=== PATIENT | male | born 1950 | race Caucasian/White ===

== ENCOUNTER 2022-06-18 15:46 | Emergency (ER) | payer BC, SELFPAY ==
--- NOTE | 2022-06-18 15:52 | ED.MALEGU ---
HPI - Male Genitourinary General Chief complaint: Urogenital-Male Stated complaint: penile problems Time Seen by Provider: 06/18/22 15:55 Source: patient, RN notes reviewed and old records reviewed Mode of arrival: ambulatory Limitations: no limitations History of Present Illness HPI Narrative: 71-year-old male presents to the [facility] with redness, itching to the foreskin of his penis. States it started on Wednesday, day after he saw his primary care provider. Patient reports that he had sex with some woman on Wednesday night. Onset (ago): day(s) (2) Related Data Allergies Allergy/AdvReac Type Severity Reaction Status Date / Time No Known Allergies Allergy Verified 06/18/22 15:51 Review of Systems Review of Systems: All systems reviewed & are unremarkable except as noted in HPI and below Constitutional: Constitutional: Reports no additional constitutional complaints Eyes: Eyes: Reports no additional eye complaints ENT: Reports system reviewed and no additional complaints, except as documented Cardiovascular: Cardiovascular: Reports no additional cardiovascular complaints, Denies chest pain and Denies dyspnea Respiratory: Respiratory: Reports no additional respiratory complaints, Denies chest congestion, Denies cough and Denies dyspnea Gastrointestinal: Gastrointestinal: Reports no additional gastrointestinal complaints, Denies abdominal pain, Denies nausea and Denies vomiting Genitourinary: Genitourinary: Reports as per HPI Musculoskeletal: Musculoskeletal: Reports no additional musculoskeletal complaints Integumentary/Breasts: Skin/Breast: Reports system reviewed and no additional complaints, except as docu Neurologic: Reports system reviewed and no additional complaints, except as documented Psychiatric: Psychiatric: Reports no additional psychiatric complaints Allergic/Immunologic: Allergic/Immunologic: Reports no additional allergic/immunologic complaints [facility] Surgical History Surgical History History of carpal tunnel release (2016) Hx of cataract removal with insertion of prosthetic lens Family History Family History Father Cerebrovascular accident Mother Parkinsons Sibling CHF (congestive heart failure) Social History Social History Smoking packs per day: 0.5 Smoking cigarettes per day: 10.0 Smoking status: Current every day smoker Alcohol intake: never Substance use: never Comments At the time of my signature, I reviewed and agree with the nursing past medical, surgical, social, and family history. There is no relevant family history pertinent to the patient complaint. Exam Const: General: cooperative, healthy appearing, comfortable, no acute distress, well developed, alert and well nourished Nutritional Appearance: well nourished Orientation/consciousness: patient oriented x3 Limitations: no limitations HENMT: Head: normal to inspection Ears: hearing grossly normal bilaterally and external ears normal Face/Nose/Sinus: Normal external nose present, Normal nares present, Normal nasal mucous membranes and turbinates present and normal facial exam Face and sinus: normal facial exam Eyes: General: appearance normal, both eyes and all related structures Alignment and Position: alignment normal Periorbital: periorbital findings normal Pupils: Equal, round and reactive pupils present EOM: EOMs intact bilaterally Neck: Neck: normal visual inspection, full ROM, no lymphadenopathy and no meningeal signs Chest: Chest palpation & inspection: normal inspection of the chest Resp: Effort & Inspection: normal respiratory effort and able to speak in complete sentences Auscultation: clear to auscultation bilaterally, no crackles, no rales, no rhonchi and no wheezes Cardio: Rate: regular rate Rh
[2022-06-18 15:55] VITALS: BP 151/82; PULSE 96; RESP 16; TEMP 37; O2SAT 97
== END 2022-06-18 16:21 | disposition home or self-care (01) ==
PROVIDERS: Emergency Provider Nurse Practitioner; PCP Family Medicine Adolescent Medicine
DX: B37.49 Other urogenital candidiasis (principal); F17.210 Nicotine dependence, cigarettes, uncomplicated
CPT/HCPCS: 87491; 87591; 87661; 99213; G0463

== ENCOUNTER 2022-10-05 10:10 | Outpatient (CLI) | payer BC, SELFPAY ==
--- NOTE | ~2022-10-05 | MR_ITS ---
MRI of the right knee Clinical history: Pain Technique: Coronal proton density and proton density-weighted images, sagittal proton-density and T2 fat-sat images, and axial proton-density fat-saturated images were acquired. Findings: Anterior and posterior cruciate ligaments are intact. Medial collateral ligament and the la teral collateral ligament complex are intact. Popliteus tendon is intact. Medial and lateral menisci are intact, without evidence of tear. There is focal moderate chondral malacia at the inner margin of the medial femoral condyle. Remaining articular cartilage is well preserved. Bone marrow signals are unremarkable. Extensor mechanism is intact. There is no significant joint effusion. Large Glaser's cyst present. Impression: Large Glaser's cyst. 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 Reviewed, dictated and finalized at location . Impression: Large Glaser's cyst. 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
== END 2022-10-05 10:11 | disposition home or self-care (01) ==
PROVIDERS: PCP Family Medicine Adolescent Medicine; Visit Provider Orthopaedic Surgery
DX: M25.561 Pain in right knee (principal); M71.21 Synovial cyst of popliteal space [Baker], right knee
CPT/HCPCS: 73721

== ENCOUNTER 2023-01-02 12:21 | Emergency (ER) | payer BC, SELFPAY ==
--- NOTE | 2023-01-02 12:28 | ED.URI ---
HPI - URI/Sore Throat General Chief Complaint: Upper Respiratory Infection Stated Complaint: Headahce, Nausea, Chills Time Seen by Provider: 01/02/23 13:00 Source: patient and RN notes reviewed Mode of arrival: ambulatory Limitations: no limitations History of Present Illness HPI Narrative: 72 year old male presents with concern for 2 week history of vague complaints. He reports body aches, abdominal discomfort, self-induced vomiting are, back pain, cold sore, rhinorrhea, nasal congestion. He reports most of the symptoms are resolving, however he has a cough remaining and has been nauseated. He feels like he is not drinking enough. He denies dysuria, frequency, urgency, difficulty urinating. He denies fever MD elicited complaint: cough and sore throat Related Data Allergies Allergy/AdvReac Type Severity Reaction Status Date / Time No Known Allergies Allergy Verified 01/02/23 12:42 Review of Systems Review of Systems: CONSTITUTIONAL: Reports malaise. Denies chills, sweats, or fever. EYES: Denies visual changes, redness, or discharge. ENT: Reports rhinorrhea, congestion denies sinus pain, otalgia and sore throat. CARDIOVASCULAR: Denies chest pain, palpitations, or edema. RESPIRATORY: Reports cough. Denies dyspnea. GASTROINTESTINAL: Denies abdominal pain, diarrhea. Reports nausea SKIN: Denies rash or itching. MUSCULOSKELETAL: Reports myalgia. NEUROLOGIC: Denies headache. All systems reviewed & are unremarkable except as noted in HPI and below PMFSH Surgical History Surgical History History of carpal tunnel release (2016) Hx of cataract removal with insertion of prosthetic lens Family History Family History Father Cerebrovascular accident Mother Parkinsons Sibling CHF (congestive heart failure) Social History Social History Smoking packs per day: 0.5 Smoking cigarettes per day: 10.0 Smoking status: Current every day smoker Alcohol intake: never Substance use: never Comments At time of signature, agree with nursing past medical, surgical, social and family history. There is no relevant family history pertinent to the presenting complaint Exam Narrative: GENERAL: Well-appearing, well-nourished, and in no acute distress. HEAD: Normocephalic EYES: PERRLA, conjunctivae clear ENT: Nares clear, turbinates edematous and erythematous, clear discharge. Mucous membranes moist. TM pearly [place] with dull light reflex bilaterally; no tragal tenderness. Oropharynx not erythematous without lesions. Tonsils not enlarged and without exudate, no drooling, no hoarseness, no trismus, uvula midline. NECK: Supple. No lymphadenopathy CHEST: Clear to auscultation, breath sounds equal. No wheezing, rhonchi, rales, or stridor. No respiratory distress, speaks in full sentences. HEART: Regular rate and rhythm. No murmur heard. SKIN: Warm, dry, no rash. NEURO: Alert and oriented x3. PSYCH: Normal mood and affect Course Course Emergency Course: Patient is aware of diagnosis, understands and agrees to treatment plan. Anticipatory guidance given. Patient agrees to follow-up as directed and is aware of reasons to seek care at the emergency department. Portions of this record may have been created with voice recognition software Level of Care: Express Care Visit Vital Signs Vital signs: Reviewed. MDM - URI/Sore Throat MDM Narrative Medical decision making narrative: Differential diagnosis considered: Roque virus, strep pharyngitis, allergic rhinitis, upper respiratory tract infection, sinusitis, rhinosinusitis, nasopharyngitis. viral pharyngitis, otitis media, otitis externa, pneumonia, bronchitis, viral cough syndrome, viral syndrome, and influenza. Exam findings show no acute concerns or changes; patient is non-toxic a
[2023-01-02 12:39] VITALS: BP 149/74; PULSE 93; RESP 20; TEMP 37.4; O2SAT 98
== END 2023-01-02 13:19 | disposition home or self-care (01) ==
PROVIDERS: Emergency Provider Nurse Practitioner; PCP Family Medicine Adolescent Medicine
DX: R11.0 Nausea (principal); F17.210 Nicotine dependence, cigarettes, uncomplicated; Z20.822 Contact with and (suspected) exposure to COVID-19
CPT/HCPCS: 81003; 87426; 87804; 99213; C9803; G0463

== ENCOUNTER 2023-03-06 11:35 | Emergency (ER) | payer BC, SELFPAY ==
--- NOTE | 2023-03-06 11:48 | ED.BACK ---
HPI - Back Pain/Injury General Chief Complaint: Back Pain/Injury Stated Complaint: back injury Time Seen by Provider: 03/06/23 11:55 Source: patient, RN notes reviewed and old records reviewed Mode of arrival: ambulatory Limitations: no limitations History of Present Illness HPI Narrative: 72-year-old male presents to the [facility] with complaints of left flank pain. Patient states that he was using a bumping bar yesterday approximately 2:00 p.m.. Patient states as he was driving home started having pain to the left flank area. States that he really felt nauseous, vomited, was having frequency urgency with urination. Patient states 09/17 Patient is not a great historian Denies fevers Denies history of any kidney stones or urinary issues. States he took his meloxicam and NyQuil last night to help manage pain however he has had no improvement. Onset (ago): day(s) Relieving factors: none Work related injury: No Related Data Home Medications Medication Instructions Recorded Confirmed meloxicam 7.5 mg tablet 7.5 mg PO DAILY 03/06/23 03/06/23 Allergies Allergy/AdvReac Type Severity Reaction Status Date / Time No Known Allergies Allergy Verified 03/06/23 11:53 Review of Systems Review of Systems: All systems reviewed & are unremarkable except as noted in HPI and below Constitutional: Constitutional: Reports no additional constitutional complaints Eyes: Eyes: Reports no additional eye complaints ENT: Reports system reviewed and no additional complaints, except as documented Cardiovascular: Cardiovascular: Reports no additional cardiovascular complaints, Denies chest pain and Denies dyspnea Respiratory: Respiratory: Reports no additional respiratory complaints, Denies chest congestion, Denies cough and Denies dyspnea Gastrointestinal: Gastrointestinal: Reports as per HPI, Reports abdominal pain, Reports nausea and Reports vomiting Musculoskeletal: Musculoskeletal: Reports no additional musculoskeletal complaints Integumentary/Breasts: Skin/Breast: Reports system reviewed and no additional complaints, except as docu Neurologic: Reports system reviewed and no additional complaints, except as documented Psychiatric: Psychiatric: Reports no additional psychiatric complaints Allergic/Immunologic: Allergic/Immunologic: Reports no additional allergic/immunologic complaints [facility] Surgical History Surgical History History of carpal tunnel release (2016) Hx of cataract removal with insertion of prosthetic lens Family History Family History Father Cerebrovascular accident Mother Parkinsons Sibling CHF (congestive heart failure) Social History Social History Smoking packs per day: 0.5 Smoking cigarettes per day: 10.0 Smoking status: Current every day smoker Alcohol intake: never Substance use: never Comments At the time of my signature, I reviewed and agree with the nursing past medical, surgical, social, and family history. There is no relevant family history pertinent to the patient complaint. Exam Const: General: cooperative, well developed, alert, uncomfortable, well groomed and well nourished Nutritional Appearance: well nourished Orientation/consciousness: patient oriented x3 Limitations: no limitations HENMT: Head: normal to inspection Ears: hearing grossly normal bilaterally and external ears normal Face/Nose/Sinus: Normal external nose present, Normal nares present, Normal nasal mucous membranes and turbinates present, normal facial exam and face symmetric Face and sinus: normal facial exam and face symmetric Eyes: General: appearance normal, both eyes and all related structures Alignment and Position: alignment normal Periorbital: periorbital findings normal Pupils: Equal, round and reac
[2023-03-06 11:50] VITALS: BP 148/78; PULSE 83; RESP 16; TEMP 37; O2SAT 99
== END 2023-03-06 12:45 | disposition short-term general hospital (02) ==
PROVIDERS: Emergency Provider Nurse Practitioner; PCP Family Medicine Adolescent Medicine
DX: R10.9 Unspecified abdominal pain (principal); F17.210 Nicotine dependence, cigarettes, uncomplicated; Z98.49 Cataract extraction status, unspecified eye
CPT/HCPCS: 81003; 99212; G0463

== ENCOUNTER 2023-03-06 13:07 | Emergency (ER) | payer BC, SELFPAY ==
--- NOTE | ~2023-03-06 | CT_ITS ---
EXAMINATION: CT abdomen pelvis wo con DATE: 03/06/2023 18:24 INDICATION: L flank pain x 1 day TECHNIQUE: Computed tomography (CT) of the abdomen and pelvis was performed without intravenous contr ast. Automated exposure control and iterative reconstruction technique were employed. The dose-length product was 331.83 mGy-cm. COMPARISON: None. FINDINGS: Lower thorax: 4.1 x 1.5 cm left lower lobe opacity with spiculated margins. Emphysematous change. Liver: Normal. Biliary/Gallbladder: Cholelithiasis. No bile duct dilation. Pancreas: No mass or duct dilation. Spleen: Normal. Adrenals:No mass. Kidneys: Moderate left and mild right perinephric stranding. Mild left hydronephrosis. No suspicious mass. GI tract: No small or large bowel dilation. Normal appendix. Mesentery/Peritoneum: No ascites, mass, or free air. Retroperitoneum: No mass. Atherosclerotic abdominal aortic and/or arterial calcifications. Pelvis: Normal urinary bladder. 3 mm distal left ureteral calcification. Soft Tissues: Soft tissues and body wall unremarkable. Bones: No acute osseous finding. IMPRESSION: 3 mm distal left ureteral calcification causing mild-moderate obstructive uropathy. 4.1 x 1.5 cm irregular area of possible left lower lobe scar, neoplasia not excluded, recommend georgiana rison to outside studies if available. Otherwise, consider follow-up CT at 3 months, PET/CT, or tissu e sampling. Reviewed, dictated and finalized at location K. LBOARD TANK PUMPER IMPRESSION: 3 mm distal left ureteral calcification causing mild-moderate obstructive uropa thy. 4.1 x 1.5 cm irregular area of possible left lower lobe scar, neoplasia not exc luded, recommend comparison to outside studies if available. Otherwise, conside r follow-up CT at 3 months, PET/CT, or tissue sampling.
[2023-03-06 13:14] VITALS: BP 146/72; PULSE 77; RESP 18; TEMP 36.4; O2SAT 100
[2023-03-06 18:05] LABS: Basophils Percent Auto 0.2 % (0.2-1.2); Eosinophils Percent Auto 0.2 % (0-4.4); Hematocrit 46.3 % (42.0-52.0); Hemoglobin 15.2 g/dL (14.0-18.0); Immature Granulocyte Absolute 0.06 K/mm3 (0.00-0.031); Immature Granulocyte Percent A 0.4 % (0-0.5); Lymphocytes Percent Auto 12.7 % (18.3-44.2); Mean Corpuscular HGB Conc 32.8 g/dl (32-36); Mean Corpuscular Hemoglobin 33.3 pg (26-34); Mean Corpuscular Volume 101.3 fl (80-100); Mean Platelet Volume 9.7 fl (7.4-10.4); Monocytes Absolute Auto 1.1 K/mm3 (0.1-0.6); Monocytes Percent Auto 7.2 % (2.6-8.5); Neutrophils Absolute Auto 12.5 K/mm3 (1.3-6.7); Neutrophils Percent Auto 79.3 % (45.5-73.1); Platelet Count Result 188 k/mm3 (150-375); Red Blood Count 4.57 M/mm3 (4.6-6.20); Red Cell Distribution Width 13.4 % (11.5-14.5); White Blood Count 15.7 K/mm3 (4.5-10.0)
--- NOTE | 2023-03-06 18:07 | ED_ITS ---
HPI - General Adult General Chief complaint: Urogenital-Male Stated complaint: flank pain Time Seen by Provider: 03/06/23 17:53 Source: patient Mode of arrival: ambulatory Limitations: no limitations History of Present Illness HPI narrative: this is a 72-year-old male who presents to the ED with chief complaint of Left flank pain beginning yesterday. Reports today the pain worsened Significantly. Reports pain stays in the left flank area and does not radiate. He does note that he was working on some things in the [place] a few days ago but denies any specific injury. Endorses diaphoresis along with nausea and vomiting today. Denies any recorded fevers, diarrhea chest pain, shortness of breath or urinary problems. Related Data Home Medications Medication Instructions Recorded Confirmed meloxicam 7.5 mg tablet 7.5 mg PO DAILY 03/06/23 03/06/23 Allergies Allergy/AdvReac Type Severity Reaction Status Date / Time No Known Allergies Allergy Verified 03/06/23 11:53 Review of Systems Review of Systems: All systems as dictated in [facility] Surgical History Surgical History History of carpal tunnel release (2016) Hx of cataract removal with insertion of prosthetic lens Family History Family History Father Cerebrovascular accident Mother Parkinsons Sibling CHF (congestive heart failure) Social History Social History Smoking packs per day: 0.5 Smoking cigarettes per day: 10.0 Smoking status: Current every day smoker Alcohol intake: never Substance use: never Exam Narrative: GENERAL: Well-appearing, well-nourished, and in no acute distress. HEAD: Normocephalic, atraumatic. EYES: PERRLA and EOMI. ENT: Nares clear, no rhinorrhea or epistaxis. Mucous membranes moist. Oropharynx without tonsillar hypertrophy exudate or other lesions. NECK: Supple. No adenopathy or masses. CHEST: No respiratory distress. Clear to auscultation. No wheezes rales or rhonchi HEART: Regular rate and rhythm. No murmur heard. Normal peripheral pulses. ABDOMEN: significant left flank tenderness present. Negative right flank. Soft, otherwise nontender, nondistended, normal active bowel sounds. MSK: Normal range of motion. No edema. SKIN: Warm, dry, no rash. NEURO: Alert and oriented x3. No focal deficits. PSYCH: Normal mood and affect. Course Vital Signs Vital signs: Vital Signs Temperature 97.5 F L 03/06/23 13:14 Pulse Rate 77 03/06/23 13:14 Respiratory Rate 18 03/06/23 13:14 Blood Pressure 146/72 H 03/06/23 13:14 Pulse Oximetry 100 03/06/23 13:14 Oxygen Delivery Room Air 03/06/23 13:14 Temperature 97.5 F L 03/06/23 13:14 Pulse Rate 77 03/06/23 13:14 Respiratory Rate 18 03/06/23 13:14 Blood Pressure 146/72 H 03/06/23 13:14 Pulse Oximetry 100 03/06/23 13:14 Oxygen Delivery Room Air 03/06/23 13:14 Medical Decision Making MDM Narrative Medical decision making narrative: This is a 72-year-old male who presents to the ED with chief complaint of left flank pain beginning last night. Vitals are normal. On exam he does have left flank tenderness. White count is 15.7. CMP remarkable only for slightly elevated BUN at 21. Creatinine is normal. Urinalysis shows evidence blood. There is trace leuk but also this is contaminated with acute squames. Low suspicion for UTI. CT abdomen: 3 mm distal left ureteral calcification causing mild-moderate obstructive uropathy. 4.1 x 1.5 cm irregular area of possible left lower lobe scar, neoplasia not excluded, recommend comparison to outside studies if available. Otherwise, consider follow-up CT at 3 months, PET/CT, or tissue sampling.. symptoms consistent with ureteral stone. For patient did very well with morphine and Zofran here. He was also given a dose of Toradol before being discharged. Flomax, Zofran and Musella prescribed to the pharmacy. Pt will be discharged in stable condition. Return precautions given and supportive measures discussed. Pt is understanding and agreeable with plan for discharge and follow-up with PCP. Vital Signs Vital Signs: Vital Signs Temperature 97.5 F L 03/06/23 13:14 Pulse Rate 77 03/06/23 13:14 Respiratory Rate 18 03/06/23 13:14 Blood Pressure 146/72 H 03/06/23 13:14 Pulse Oximetry 100 03/06/23 13:14 Oxygen Delivery Room Air 03/06/23 13:14 Temperature 97.5 F L 03/06/23 13:14 Pulse Rate 77 03/06/23 13:14 Respiratory Rate 18 03/06/23 13:14 Blood Pressure 146/72 H 03/06/23 13:14 Pulse Oximetry 100 03/06/23 13:14 Oxygen Delivery Room Air 03/06/23 13:14 Lab Data 03/06/23 18:00 03/06/23 18:00 Labs: Lab Results 03/06/23 03/06/23 Range/Units 18:00 19:08 WBC 15.7 H (4.5-10.0) K/mm3 RBC 4.57 L (4.6-6.20) M/mm3 Hgb 15.2 (14.0-18.0) g/dL Hct 46.3 (42.0-52.0) % MCV 101.3 H (80-100) fl MCH 33.3 (26-34) pg MCHC 32.8 (32-36) g/dl RDW 13.4 (11.5-14.5) % Plt Count 188 (150-375) k/mm3 MPV 9.7 (7.4-10.4) fl Immature Gran % (Auto) 0.4 (0-0.5) % Neut % (Auto) 79.3 H (45.5-73.1) % Lymph % (Auto) 12.7 L (18.3-44.2) % [place] % (Auto) 7.2 (2.6-8.5) % Eos % (Auto) 0.2 (0-4.4) % Baso % (Auto) 0.2 (0.2-1.2) % Lymph # (Auto) 2.00 (0.9-3.2) K/mm3 [place] # (Auto) 1.1 H (0.1-0.6) K/mm3 Eos # (Auto) 0.0 (0-0.3) K/mm3 Baso # (Auto) 0.0 (0.0-0.1) K/mm3 Abs Immat Gran (auto) 0.06 H (0.00-0.031) K/mm3 Absolute Neuts (auto) 12.5 H (1.3-6.7) K/mm3 Absolute Nucleated RBC 0.0 (0.0-0.012) K/mm3 Nucleated RBC % 0.0 (0.0-0.2) % Sodium 140 (137-145) mmol/L Potassium 4.3 (3.4-5.0) mmol/L Chloride 106 (98-107) mmol/L Carbon Dioxide 26 (22-30) mmol/L Anion Gap 8 (8-16) mmol/L BUN 21 H (9-20) mg/dL Creatinine 1.30 (0.7-1.3) mg/dL Estim Creat Clear Calc Not Reportable Estimated GFR 54 L (59 - ) Glucose 115 H (65-110) mg/dL Calcium 9.7 (8.4-10.2) mg/dL Total Bilirubin 1.1 (0.2-1.3) mg/dL AST 36 (17-59) U/L ALT 23 (6-50) U/L Alkaline Phosphatase 77 (38-126) U/L Total Protein 8.0 (6.3-8.2) g/dL Albumin 4.8 (3.5-5.1) g/dL Lipase 67 (23-300) U/L Urine Color Dark yellow (Yellow) Urine Appearance Clear (Clear) Urine pH 5.0 (5.0-9.0) Ur Specific [place] 1.023 (1.001-1.035) Urine Protein 1+ H (Negative) mg/dL Urine Glucose (UA) Negative (Negative) mg/dL Urine Ketones 1+ H (Negative) mg/dL Ur Blood (Man) 3+ H (Negative) Urine Nitrate Negative (Negative) Urine Bilirubin Negative (Negative) Urine Urobilinogen 1.0 (<2.0) mg/dL Leukocyte Esterase Rfl Trace H (Negative) ZOILA/UL Urine RBC 21-50 H (0-2) /hpf Urine WBC 0-5 /hpf Ur Squamous Epith Cells Occasional (Few) /hpf Urine Bacteria None seen /hpf Urine Casts 0-2 Discharge Plan Discharge Clinical Impression: Calculus of distal left ureter Patient Disposition: Home, Self-Care Condition: Stable Instructions: Antibiotic Form, Kidney Stones (ED) Additional Instructions: your exam shows evidence of left-sided kidney stone. This should pass on its own with the use of Flomax. Zofran as prescribed for nausea and Musella for pain. Use Tylenol regularly for pain control at home. If you have any new or worsening symptoms please return to the ER for further evaluation. Prescriptions: New ondansetron 4 mg tablet,disintegrating 4 mg PO Q8H PRN (Reason: nausea and vomiting) Qty: 10 0RF hydrocodone-acetaminophen 5-325 mg tablet 1 tablet PO Q8H PRN (Reason: pain) Qty: 14 0RF tamsulosin [Flomax] 0.4 mg capsule 0.4 mg PO DAILY Qty: 10 0RF No Action meloxicam 7.5 mg tablet 7.5 mg PO DAILY Follow-up/Referrals: Tho Tenorio MD [Primary Care Provider] - Stand Alone Forms: Work/School Release IP Time of Disposition: 19:54
[2023-03-06] MEDS: ONDANSETRON INJ 4 MG/2 ML VIAL IV PUSH (18:08)
[2023-03-06] MEDS: MORPHINE SULFATE (*CRX) 4 MG/ML INJ IV PUSH (18:08)
[2023-03-06 18:16] LABS: Alanine Aminotransferase 23 U/L (6-50); Albumin Level 4.8 g/dL (3.5-5.1); Alkaline Phosphatase 77 U/L (38-126); Anion Gap 8 mmol/L (8-16); Aspartate Amino Transferase 36 U/L (17-59); Bilirubin,Total 1.1 mg/dL (0.2-1.3); Blood Urea Nitrogen 21 mg/dL (9-20); Calcium 9.7 mg/dL (8.4-10.2); Carbon Dioxide 26 mmol/L (22-30); Chloride 106 mmol/L (98-107); Estimated Glomerular Filt Rate 54; Glucose 115 mg/dL (65-110); Lipase 67 U/L (23-300); Potassium 4.3 mmol/L (3.4-5.0); Sodium 140 mmol/L (137-145)
[2023-03-06 19:20] LABS: Appearance Urine Clear (Clear); Bacteria Urine None Seen /hpf; Bilirubin Urine Negative (Negative); Blood Urine 3+ (Negative); Color Urine Dark Yellow (Yellow); Glucose Urine UA Negative (Negative); Ketones Urine 1+ mg/dL (Negative); Leukocyte Esterase Ur Trace LEU/UL (Negative); Nitrate Urine Negative (Negative); Non Pathogenic Casts 0-2; Protein Urine 1+ mg/dL (Negative); RBC Urine 21-50 /hpf (0-2); Specific Grav Ur 1.023 (1.001-1.035); Squamous Epithelial Cell Urine Occasional /hpf (Few); WBC Urine 0-5 /hpf
[2023-03-06 19:28] LABS: Add Urine Microscopic? YES
[2023-03-06] MEDS: KETOROLAC 15 MG/ML VIAL (*BKC) IV PUSH (19:54)
== END 2023-03-06 20:33 | disposition home or self-care (01) ==
PROVIDERS: Emergency Provider Physician Assistant; PCP Family Medicine Adolescent Medicine
DX: N13.9 Obstructive and reflux uropathy, unspecified (principal); N20.1 Calculus of ureter; Z96.1 Presence of intraocular lens; Z98.49 Cataract extraction status, unspecified eye; F17.210 Nicotine dependence, cigarettes, uncomplicated; R91.8 Other nonspecific abnormal finding of lung field
CPT/HCPCS: 36415; 74176; 80053; 81001; 81003; 83690; 85025; 96374; 96375; 99284; J1885; J2270; J2405

== ENCOUNTER 2023-03-07 18:16 | Observation (INO) | payer BC, SELFPAY ==
[2023-03-07] VITALS (8 sets, daily range): BP systolic 87–113; BP diastolic 56–82; PULSE 83–161; RESP 20–21; TEMP 36.3; O2SAT 94–99
--- NOTE | ~2023-03-07 | CT_ITS ---
Non-contrast CT scan of the Abdomen and Pelvis Clinical indication: Kidney stone Technique: 2.5 mm axial scans were obtained through the abdomen and pelvis without intravenous or or al contrast. Dose reduction technique was used on this scan by utilizing automated exposure control a nd iterative reconstruction technique. The dose-length product (DLP) was 376.00 mGy-cm. COMPARISON: 03/06/2023 Findings: Images through the lung bases reveal small bilateral pleural effusions, with bibasilar ate lectasis. Probable minimal fullness left renal collecting system. No renal, ureteral, or bladder stones seen cu rrently. No right hydronephrosis. The liver, spleen, pancreas, and adrenals appear normal. Multiple gallstones are present. There are a therosclerotic calcifications of the aorta. There is no evidence of bowel obstruction. Images through the pelvis were performed. There is no evidence of ascites or lymphadenopathy. Urinary bladder unremarkable. Prostate gland is enlarged. Impression: No renal, ureteral, or bladder stone seen. Possible minimal fullness left renal collecting system, im proved from prior exam. Previously noted distal left ureteral stone has presumably been passed. Small bilateral pleural effusions. Cholelithiasis. Reviewed, dictated and finalized at [facility]. L MINER Impression: No renal, ureteral, or bladder stone seen. Possible minimal fullness left renal collecting system, improved from prior exam. Previously noted distal left uret eral stone has presumably been passed. Small bilateral pleural effusions. Cholelithiasis.
--- NOTE | ~2023-03-07 | XR_ITS ---
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 RESULT: Lines, tubes, and devices: None. Lungs and pleura: Mild diffuse reticular opacities, streaky bibasilar atelectasis/scar, mild bilater al posterior costophrenic angle blunting. Cardiomediastinal silhouette: Stable. Other: No acute osseous or upper abdominal finding. IMPRESSION: Mild interstitial edema and small bilateral effusions. Reviewed, dictated and finalized at location K. H MAKING MACHINE OPERATOR
--- NOTE | 2023-03-07 19:05 | ECG_ITS ---
Measurements Intervals [place] Rate: 160 P: [place]: 0 QRS: 61 QRSD: 73 T: 67 QT: 255 QTc: 416 Interpretive Statements ATRIAL FLUTTER/TACHYCARDIA WITH RAPID VENTRICULAR RESPONSE CANNOT RULE OUT SEPTAL INFARCT, AGE INDETERMINATE ABNORMAL ECG NO PREVIOUS ECG AVAILABLE FOR COMPARISON Electronically Signed On 03-07-2023 19:28:48 MANAGER POOL by Jatinder Valles D.O.
[2023-03-07 19:21] LABS: Basophils Absolute Auto 0.1 K/mm3 (0.0-0.1); Basophils Percent Auto 0.4 % (0.2-1.2); Eosinophils Absolute Auto 0.1 K/mm3 (0-0.3); Eosinophils Percent Auto 0.7 % (0-4.4); Hematocrit 44.7 % (42.0-52.0); Hemoglobin 14.6 g/dL (14.0-18.0); Immature Granulocyte Absolute 0.04 K/mm3 (0.00-0.031); Immature Granulocyte Percent A 0.3 % (0-0.5); Lymphocytes Absolute Auto 1.64 K/mm3 (0.9-3.2); Lymphocytes Percent Auto 13.5 % (18.3-44.2); Mean Corpuscular HGB Conc 32.7 g/dl (32-36); Mean Corpuscular Hemoglobin 33.4 pg (26-34); Mean Corpuscular Volume 102.3 fl (80-100); Mean Platelet Volume 10.2 fl (7.4-10.4); Monocytes Absolute Auto 0.9 K/mm3 (0.1-0.6); Monocytes Percent Auto 7.6 % (2.6-8.5); Neutrophils Absolute Auto 9.4 K/mm3 (1.3-6.7); Neutrophils Percent Auto 77.5 % (45.5-73.1); Platelet Count Result 176 k/mm3 (150-375); Red Blood Count 4.37 M/mm3 (4.6-6.20); Red Cell Distribution Width 13.4 % (11.5-14.5); White Blood Count 12.2 K/mm3 (4.5-10.0)
--- NOTE | 2023-03-07 19:30 | ECG_ITS ---
Measurements Intervals [place] Rate: 82 P: 46 TN: 157 QRS: 45 QRSD: 76 T: 60 QT: 364 QTc: 426 Interpretive Statements SINUS RHYTHM WITH SINUS ARRHYTHMIA NORMAL ECG COMPARED TO ECG 03/07/2023 19:06:59 SINUS RHYTHM NOW PRESENT SINUS ARRHYTHMIA NOW PRESENT Electronically Signed On 03-08-2023 9:27:20 DIGITAL MARKETING ASSISTANT by Jatinder Valles D.O.
[2023-03-07 19:35] LABS: Anion Gap 7 mmol/L (8-16); Blood Urea Nitrogen 37 mg/dL (9-20); Calcium 8.8 mg/dL (8.4-10.2); Carbon Dioxide 27 mmol/L (22-30); Chloride 106 mmol/L (98-107); Estimated CRCL calculation 40 ml/min; Estimated Glomerular Filt Rate 42; Glucose 114 mg/dL (65-110); Potassium 4.1 mmol/L (3.4-5.0); Sodium 140 mmol/L (137-145)
[2023-03-07] MEDS: HYDROmorphone HCL INJ (*CRX) 1 MG/ML SYR 0.5 MG IV PUSH (19:35)
[2023-03-07] MEDS: KETOROLAC 15 MG/ML VIAL (*BKC) IV PUSH (19:36)
[2023-03-07] MEDS: SODIUM CHLORIDE 0.9% IV 1,000 ML 999 ML IV CONT ×2 (19:36→22:35)
[2023-03-07] MEDS: ONDANSETRON INJ 4 MG/2 ML VIAL IV PUSH (19:36)
[2023-03-07] MEDS: ASPIRIN 81 MG CHEWABLE TABLET 324 MG PO (20:14)
[2023-03-07] MEDS: dilTIAZem HCl INJ 25 MG/5 ML VIAL 10 MG IV PUSH ×2 (20:15→20:38)
[2023-03-07] MEDS: dilTIAZem 100 MG/100 ML 100 MG/100 ML BAG IV CONT (21:01)
--- NOTE | 2023-03-07 21:28 | ED.GENADULT ---
HPI - General Adult General Chief complaint: Urogenital-Male Stated complaint: kidney stone Time Seen by Provider: 03/07/23 18:59 History of Present Illness HPI narrative: This is a 72-year-old male presenting with left-sided flank pain. He was diagnosed with a 3 mm distal ureter stone yesterday. Pain was controlled emergency department he was discharged. The patient did not take Motrin Tylenol. He took 1 Sealevel which helped with the pain but then the pain recurred. He took another Sealevel later in the day which did not help. He then came to the hospital for pain control. He denies fever chills nausea vomiting abdominal pain. Related Data Home Medications Medication Instructions Recorded Confirmed meloxicam 7.5 mg tablet 7.5 mg PO DAILY 03/06/23 03/06/23 Allergies Allergy/AdvReac Type Severity Reaction Status Date / Time No Known Allergies Allergy Verified 03/06/23 11:53 [facility] Surgical History Surgical History History of carpal tunnel release (2015) Hx of cataract removal with insertion of prosthetic lens Family History Family History Father Cerebrovascular accident Mother Parkinsons Sibling CHF (congestive heart failure) Social History Social History Smoking packs per day: 0.5 Smoking cigarettes per day: 10.0 Smoking status: Current every day smoker Alcohol intake: never Substance use: never Exam Narrative: APPEARANCE: No apparent distress. Head: atraumatic. EYES: EOMI, NOSE: Atraumatic NECK: Trachea midline RESPIRATORY: No increased rate of breathing CARDIOVASCULAR: Tachycardic ABDOMINAL: Soft nontender, left CVA tenderness MUSCULOSKELETAl: No obvious deformities NEURO: Alert. Moving 4/4 extremities SKIN:: Warm, dry. Normal color PSYCHIATRIC: Normal affect Course Vital Signs Vital signs: Vital Signs Temperature 97.4 F L 03/07/23 18:20 Pulse Rate 154 H 03/07/23 18:20 Respiratory Rate 20 03/07/23 18:20 Blood Pressure 108/74 03/07/23 18:20 Pulse Oximetry 99 03/07/23 18:20 Temperature 97.4 F L 03/07/23 18:20 Pulse Rate 156 H 03/07/23 21:01 Respiratory Rate 20 03/07/23 18:20 Blood Pressure 113/82 03/07/23 21:01 Pulse Oximetry 99 03/07/23 18:20 Medical Decision Making MDM Narrative Medical decision making narrative: -Course: 72-year-old male presenting with left-sided flank pain due to kidney stone. Incidentally found to be in AFib with RVR. Kidney stone pain was controlled with Dilaudid, Toradol and Tylenol. Patient was given diltiazem 10 mg x 2 and then started on a diltiazem drip. Chads Vasc of 1 for age. Given 325 mg aspirin. 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 Improved from yesterday. Slight FAUSTINO. Given fluid rehydration. Urine not indicative infection. Independent EKG interpretation: Rhythm a flutter, Rate [160], [place] -[normal], [place] -[normal], QRS [narrow], QTC [normal], T waves -[negative for concerning inversions], ST Segments - [Negative for concerning elevations] Final interpretations: AFib/flutter with RVR -Discussion of Management/Consultants: César- Hospitalist -Interventions: 2 L normal saline, Dilaudid, Tylenol, Toradol, diltiazem 10 mg x 2, diltiazem drip -Shared decision making / Disposition:admitted. Vital Signs Vital Signs: Vital Signs Temperature 97.4 F L 03/07/23 18:20 Pulse Rate 154 H 03/07/23 18:20 Respiratory Rate 2
--- NOTE | 2023-03-07 21:31 | PC.NURSE ---
This RN at bedside, when pt sat on edge of bed to use urinal O2 sat dropped to 88%. Pt placed 2L nasal cannula, O2 sat now 97%
--- NOTE | 2023-03-07 21:37 | PM.IMHP ---
H&P: HPI History of Present Illness Date/Time: 03/07/23 21:37 Chief Complaint: Left flank pain Narrative: This is a 72-year-old male with past medical history significant for benign prostatic hyperplasia, tobacco dependence. patient presents to the emergency room with left flank pain. Preliminary workup was significant for kidney stone. While patient was in the emergency room he had episode of atrial fibrillation with rapid ventricular response which remained sustained patient was started on Cardizem drip. Patient has been admitted for further evaluation management and treatment. Non-contrast CT scan of the Abdomen and Pelvis Clinical indication: Kidney stone Technique:? 2.5 mm axial scans were obtained through the abdomen and pelvis without intravenous or oral contrast. Dose reduction technique was used on this scan by utilizing automated exposure control and iterative reconstruction technique. The dose-length product (DLP) was 376.00 mGy-cm. COMPARISON: 03/06/2023 Findings:? Images through the lung bases reveal small bilateral pleural effusions, with bibasilar atelectasis. Probable minimal fullness left renal collecting system. No renal, ureteral, or bladder stones seen currently. No right hydronephrosis. The liver, spleen, pancreas, and adrenals appear normal. Multiple gallstones are present. There are atherosclerotic calcifications of the aorta.? ? There is no evidence of bowel obstruction. Images through the pelvis were performed. There is no evidence of ascites or lymphadenopathy. Urinary bladder unremarkable. Prostate gland is enlarged. Impression: No renal, ureteral, or bladder stone seen. Possible minimal fullness left renal collecting system, improved from prior exam. Previously noted distal left ureteral stone has presumably been passed. Small bilateral pleural effusions. Cholelithiasis. Review of Systems Review of Systems: Left flank pain Constitutional: Constitutional: Denies chills, Denies fever(s), Denies malaise and Denies night sweats Eyes: Eyes: Denies change in vision ENT: Denies dysphagia and Denies odynophagia Cardiovascular: Cardiovascular: Denies chest pain, Reports irregular heart rhythm, Denies radiating jaw, neck or arm pain and Denies palpitations Respiratory: Respiratory: Denies cough and Denies dyspnea Gastrointestinal: Gastrointestinal: Denies abdominal pain, Denies dyspepsia, Denies heartburn, Denies nausea and Denies vomiting Genitourinary: Genitourinary: Reports flank pain Musculoskeletal: Musculoskeletal: Denies muscle weakness Integumentary/Breasts: Skin/Breast: Denies rash Neurologic: Denies focal weakness and Denies Sensory deficit (Neuro) Psychiatric: Psychiatric: Reports no additional psychiatric complaints and Reports as per HPI Endocrine: Endocrine: Denies cold intolerance, Denies fatigue, Denies flushing, Denies heat intolerance, Denies polyphagia, Denies polydipsia and Denies palpitations Hematologic/Lymphatic: Hematologic/Lymphatic: Reports no additional hematologic/lymphatic complaints and Reports as per HPI Allergic/Immunologic: Allergic/Immunologic: Reports no additional allergic/immunologic complaints and Reports as per HPI PMFSH Surgical History Surgical History History of carpal tunnel release (2016) Hx of cataract removal with insertion of prosthetic lens Family History Family History Father Cerebrovascular accident Mother Parkinsons Sibling CHF (congestive heart failure) Social History Social History Smoking packs per day: 1 Smoking cigarettes per day: 20.0 Smoking status: Current every day smoker Tobacco type: cigarettes Second hand tobacco smoke exposure: No Alcohol intake: never Substance use: never Do You Feel Safe in
[2023-03-07 21:56] LABS: Appearance Urine Clear (Clear); Bacteria Urine None Seen /hpf; Bilirubin Urine Negative (Negative); Blood Urine 2+ (Negative); Calcium Oxalate Crystals Urine Present /hpf; Color Urine Dark Yellow (Yellow); Glucose Urine UA Negative (Negative); Ketones Urine Trace mg/dL (Negative); Leukocyte Esterase Ur Negative LEU/UL (Negative); Need Manual Microscopic Reviewed; Nitrate Urine Negative (Negative); Protein Urine 1+ mg/dL (Negative); Specific Grav Ur 1.034 (1.001-1.035); Squamous Epithelial Cell Urine None seen /hpf (Few)
[2023-03-07 21:58] LABS: Add Urine Microscopic? YES
[2023-03-08] VITALS (16 sets, daily range): BP systolic 98–129; BP diastolic 63–78; PULSE 72–96; RESP 12–19; TEMP 36.5–37.2; O2SAT 90–99; BMI 23.8
--- NOTE | 2023-03-08 02:52 | ADMGEN ---
This patient, Alexandre Aguilar, was admitted to IMU Room 203-01. Patient/family oriented to hospital policies and general routines including ID bracelet, bed and alarms, visiting hours, pain management, procedures, bathroom and other care routines, personal items, smoking policy, room service/diet, and visiting hours. Information on how to activate the Rapid Response Team has been discussed. Patient/Family are encouraged to report perceived risks to care and to ask questions if they do not understand what they are told or what they should do.
[2023-03-08] MEDS: HYDROmorphone HCL INJ (*CRX) 1 MG/ML SYR 0.5 MG IV PUSH ×2 (07:53→18:29)
[2023-03-08] MEDS: KETOROLAC 15 MG/ML VIAL (*BKC) IV PUSH ×3 (10:05→18:30)
[2023-03-08] MEDS: levoFLOXacin 500 MG/D5W 100 ML 500 MG/100 ML BAG 100 MG IVPB (10:27)
[2023-03-08] MEDS: SODIUM CHLORIDE 0.9% IV 1,000 ML 150 ML IV CONT ×3 (10:27→23:38)
--- NOTE | 2023-03-08 11:17 | WPDURCON ---
Assessment and Plan Assessment and plan (1) Left ureteral stone: Code(s): N20.1 - Calculus of ureter Status: Acute Assessment and Plan: he has a left ureteral stone. He has not passed it over. A few days. He would like intervention on the stone if he does not pass it. We discussed ureteroscopy. We could potentially plan on this tomorrow if he is medically suitable for anesthesia. Please comment on this in his chart. He understands risks of bleeding, infection, damage to the urinary tract, inability with stone. He would like to proceed. We will add him onto the OR schedule tomorrow and plan on proceeding unless he passes the stone on his own. I recommend Flomax and straining urine. Urology Consult Note HPI Date Seen: 03/08/23 Requesting Physician: Ladarius Blancas MD Primary Care Provider: Tho Tenorio MD Consult Narrative Narrative: Alexandre Aguilar is a 72 year old male with no prior history of stone disease. He had acute onset left flank pain started over the weekend. It did not vania. This prompted a visit to the emergency room. CT scan was done which showed a distal 3 mm left ureteral stone. He was originally sent to be sent home with a conservative trial of stone passage. however: He he was found to be in AFib with rapid ventricular response and was admitted for that. I have talked with him today. He has not yet seen a stone pass. He has some flank pain this morning. His pain is now currently well controlled. He noted some blood in the urine yesterday or the day before. There is no dysuria. There is no symptoms of infection. Again, this is his 1st history of known nephrolithiasis Review of Systems Review of Systems: All systems reviewed & are unremarkable except as noted in HPI and below [facility] Surgical History Surgical History History of carpal tunnel release (2016) Hx of cataract removal with insertion of prosthetic lens Family History Family History Father Cerebrovascular accident Mother Parkinsons Sibling CHF (congestive heart failure) Social History Social History Smoking packs per day: 1 Smoking cigarettes per day: 20.0 Smoking status: Current every day smoker Tobacco type: cigarettes Second hand tobacco smoke exposure: No Alcohol intake: never Substance use: never Do You Feel Safe in your Home?: Yes Lack of Transportation: No Lack of Food: Never True Current Housing: I Have Housing Concerned About Future Housing: No Difficulty Paying Gas/Electric Bills: No Difficulty Paying for Meds: No Currently Unemployed: No Education: Bachelor's Degree Difficulty w/ Childcare or Family Care: No Spiritual care concerns: No Meds Home Medications and Allergies Home Medications Medication Instructions Recorded Confirmed Type hydrocodone 5 mg-acetaminophen 325 1 tablet PO Q8H PRN pain #14 tabs 03/06/23 03/08/23 Rx mg tablet sildenafil 100 mg tablet 100 mg PO DAILY PRN Erectile 03/08/23 03/08/23 History Dysfunction Allergies Allergy/AdvReac Type Severity Reaction Status Date / Time No Known Allergies Allergy Verified 03/06/23 11:53 Vital Signs Vital Signs - 24 hr 03/07/23 18:20 03/07/23 18:55 03/07/23 21:01 Temperature 97.4 F L Pulse Rate 154 H 154 H 156 H Respiratory Rate 20 Blood Pressure 108/74 113/82 Pulse Oximetry 99 Oxygen Delivery Oxygen Flow Rate 03/07/23 21:30 03/07/23 21:33 03/07/23 21:34 Temperature Pulse Rate 152 H 161 H Respiratory Rate 21 H Blood Pressure 104/64 104/64 Pulse Oximetry 94 96 Oxygen Delivery Nasal Cannula Oxygen Flow Rate 2 03/07/23 22:18 03/07/23 23:49 03/08/23 01:39 Temperature Pulse Rate 100 83 78 Respiratory Rate 19 Blood
--- NOTE | 2023-03-08 17:40 | PM.IMPN ---
Progress Note: A&P Assessment and Plan (1) Left ureteral stone: Code(s): N20.1 - Calculus of ureter Status: Acute (2) Atrial fibrillation/flutter: Code(s): I48.91 - Unspecified atrial fibrillation; I48.92 - Unspecified atrial flutter Status: Acute (3) Nicotine dependence, cigarettes, uncomplicated: Code(s): F17.210 - Nicotine dependence, cigarettes, uncomplicated Status: Acute (4) Male erectile dysfunction, unspecified: Code(s): N52.9 - Male erectile dysfunction, unspecified Status: Acute Plan Place patient in IMU under observation status Continues cardiac tele monitoring Patient has left UVJ calculus causing symptoms Patient admitted with AFib/a flutter, which converted to sinus rhythm after treatment will diltiazem He is currently at normal sinus rhythm Continue with aggressive IV pain management for left ureteral pain Patient received 2L of IV fluids in the ED Started on aggressive IV hydration with but 50 cc/hour normal saline to help expulsion of ureteral calculus at UVJ Strict input and output monitoring Strain urine for calculi Patient started on IV Levaquin with pharmacy to dose for associated leukocytosis and possible UTI with ureteral calculi Urology evaluated patient and may take him to the OR for ureteroscopy and JJ stent placement in am Cardiology consult given for evaluation for new onset AFib PRE-OP MEDICAL EVALUATION: I saw and evaluated the patient thoroughly at bedside from medical standpoint. Patient is a low-medium risk candidate for operative and perioperative complications under general anesthesia, if EKG and chest x-ray are within medically acceptable limits. ? Patient seen and examined at bedside during my morning rounds ? Collaborated with patient's nurse at the bedside in detail and addressed all concerns ? Labs, electrolytes, radiology, investigations and test results reviewed ? Consult/Nursing/Ancilliary notes on the chart reviewed and appreciated ? Spoke with patient/family at the bedside and answered all the questions that they had Repeat labs in a.m. Electrolyte replacement as per protocol. Patient will be monitored very closely on the floor. Further recommendations as per the hospital course. Dependence on nicotine from cigarettes: Tobacco abuse counseling: Patient smokes cigarettes on a chronic basis. Strictly advised patient to cut down on or quit smoking. Nicotine patch ordered. ~5 minutes spent on tobacco cessation counseling with the patient. Websites - http://smokefree.gov & http://www.quitnet.com ? Quitlines - 2-486-XXHY-NOW ( ) ? Smokefree Apps - [place]oyala Steve ? Text Messages - SmokefreeTXT ([place] [id number]) Time Spent With Patient Time with patient: 25 - 35 minutes Subjective Date/time seen: 03/08/23 17:40 Interval history: Patient seen and evaluated at bedside. Admitted with left ureteral calculus causing significant pain. Currently on pain medications. Urology and cardiology consults given. Review of Systems Review of Systems: 14 systems were reviewed with pertinent positives and negatives per HPI. Except as documented in the HPI/progress notes, all other systems were reviewed and are negative. All systems reviewed & are unremarkable except as noted in HPI and below Exam Narrative: PHYSICAL EXAMINATION: Vital signs: Please see the chart General physical exam: For patient lying in bed, appears to be tired and fatigued, complains of left flank pain Head/eyes: Atraumatic, EOMI, PERRLA ENT: Moist mucous membranes, nasal passages clear Neck: Supple, full range of motion, trachea midline CVS: S1 + S2, irregularly irregular rhythm, no murmurs Respiratory: Bilaterally fair air entry in both lung clemens, mild B/L crackles, symmetric chest expansion, no distress Abdomen: Soft, non-tender, bowel sounds +ve, no organomegaly Urology: +++ left CVA tenderness, no bladder tenderness Extremities: No clu
[2023-03-09] VITALS (19 sets, daily range): BP systolic 123–166; BP diastolic 64–83; PULSE 72–91; RESP 16–24; TEMP 36.6–37.4; O2SAT 90–99
--- NOTE | 2023-03-09 | ECHO_ITS ---
Patient Info Name: Alexandre Aguilar Age: 72 years : 1950 Gender: Male Ht: 72 in Wt: 190 lbs BSA: 2.10 m2 HR: 83 bpm BP: 146 / 74 mmHg Technical Quality: Good Exam Date: 03/09/2023 1:14 PM Exam Location: Echo Lab Patient Status: Outpatient Admit Date: 03/07/2023 Staff Ordering Physician: Mercedes Gilbert Production Sanitizer: Lisset Lucia RDCS Attending Provider: Ladarius Blancas MD Referring Physician: Ofelia PUENTE; Exam Type: CA echo doppler color flow Study Info Indications - atrial flutter Complete two-dimensional, color flow and Doppler transthoracic echocardiogram is performed. Summary 1. Complete two-dimensional, color flow and Doppler transthoracic echocardiogram is performed. 2. Left ventricular chamber dimension is normal. 3. Left ventricular systolic function is normal, estimated at 50-55%. 4. The left ventricular diastolic function is grade I diastolic dysfunction. 5. Right ventricular systolic function is normal. 6. Right atrial chamber dimension is mildly enlarged. 7. There is trace mitral valve regurgitation. 8. There is trace tricuspid valve regurgitation. Left Ventricle Left ventricular chamber dimension is normal. Left ventricular systolic function is normal, estimated at 50-55%. There is no increased left ventricular wall thickness. The left ventricular diastolic function is grade I diastolic dysfunction. Right Ventricle Right ventricular chamber dimension is normal. Right ventricular systolic function is normal. Left Atria Left atrial chamber dimension is normal. Right Atria Right atrial chamber dimension is mildly enlarged. Atrial Septum Intact interatrial septum visualized by color flow imaging. Aortic Valve The aortic valve is not well visualized. There is no aortic valve stenosis. There is no aortic valve regurgitation. There is mild aortic valve calcification. Pulmonic Valve The pulmonic valve is not well visualized. There is trace pulmonic regurgitation. Mitral Valve There is trace mitral valve regurgitation. Tricuspid Valve There is trace tricuspid valve regurgitation. Pericardium/Pleural There is no pericardial effusion. Inferior Vena Cava Dilated inferior vena cava with <50% collapse upon inspiration consistent with elevated right atrial pressure, 15 mmHg. Aorta The aortic root size at the sinus of Valsalva is normal. Left Ventricular Outflow Tract Name Value Normal LVOT 2D LVOT Diameter 2.2 cm LVOT Doppler LVOT Peak Gradient 5 mmHg LVOT Mean Gradient 2 mmHg LVOT VTI 19 cm LVOT VTI/AV VTI Ratio 0.9 LVOT Stroke Volume 73 ml LVOT CO 5.6 l/min LVOT CI 2.7 l/min/m2 Pulmonic Valve Name Value Normal RVOT Doppler RVOT Peak Gradient 1 mmHg PV Dopple
[2023-03-09 05:19] LABS: Basophils Absolute Auto 0.1 K/mm3 (0.0-0.1); Basophils Percent Auto 0.5 % (0.2-1.2); Eosinophils Absolute Auto 0.3 K/mm3 (0-0.3); Eosinophils Percent Auto 2.7 % (0-4.4); Hematocrit 37.3 % (42.0-52.0); Hemoglobin 12.2 g/dL (14.0-18.0); Immature Granulocyte Absolute 0.03 K/mm3 (0.00-0.031); Immature Granulocyte Percent A 0.3 % (0-0.5); Lymphocytes Absolute Auto 1.82 K/mm3 (0.9-3.2); Lymphocytes Percent Auto 19.8 % (18.3-44.2); Mean Corpuscular HGB Conc 32.7 g/dl (32-36); Mean Corpuscular Hemoglobin 33.5 pg (26-34); Mean Corpuscular Volume 102.5 fl (80-100); Mean Platelet Volume 10.4 fl (7.4-10.4); Monocytes Absolute Auto 0.8 K/mm3 (0.1-0.6); Monocytes Percent Auto 8.9 % (2.6-8.5); Neutrophils Absolute Auto 6.2 K/mm3 (1.3-6.7); Neutrophils Percent Auto 67.8 % (45.5-73.1); Platelet Count Result 139 k/mm3 (150-375); Red Blood Count 3.64 M/mm3 (4.6-6.20); Red Cell Distribution Width 13.2 % (11.5-14.5); White Blood Count 9.2 K/mm3 (4.5-10.0)
[2023-03-09] MEDS: SODIUM CHLORIDE 0.9% IV 1,000 ML 150 ML IV CONT (06:26)
[2023-03-09] MEDS: TAMSULOSIN HCL 0.4 MG CAPSULE PO (08:00)
[2023-03-09] MEDS: levoFLOXacin 250 MG/D5W 50 ML 250 MG/50 ML BAG 50 MG IVPB (08:00)
[2023-03-09 08:15] LABS: Anion Gap 4 mmol/L (8-16); Blood Urea Nitrogen 31 mg/dL (9-20); Carbon Dioxide 21 mmol/L (22-30); Chloride 115 mmol/L (98-107); Estimated CRCL calculation 49 ml/min; Estimated Glomerular Filt Rate 54; Glucose 94 mg/dL (65-110); Magnesium 2.1 mg/dL (1.6-2.3); Phosphorus 2.7 mg/dL (2.5-4.5); Potassium 4.1 mmol/L (3.4-5.0); Sodium 140 mmol/L (137-145)
--- NOTE | 2023-03-09 09:17 | PM.CNCAR ---
Assessment and Plan Assessment and plan (1) Atrial fibrillation/flutter: Code(s): I48.91 - Unspecified atrial fibrillation; I48.92 - Unspecified atrial flutter Status: Acute Assessment and Plan: Atrial flutter with rapid ventricular response noted on initial EKG in the setting of acute pain from ureteral stone. He has converted to sinus rhythm and remains in sinus rhythm at the time of my encounter with him. will start low-dose metoprolol to encourage maintenance of sinus rhythm If he has a recurrence, anticoagulation would be indicated. We will send him home with a 30 day residential monitor (ordered) to observe for recurrence. Echocardiogram showed normal LV systolic function, grade 1 diastolic dysfunction, no significant valvular abnormalities. Follow-up in our office no further cardiac recommendations at this time. Cardiology will sign off. Please call with any questions. History of Present Illness History of Present Illness Consult date/time: 03/09/23 09:17 Requesting physician: Ladarius Blancas MD Consult reason: atrial fibrillation Reason For Visit: a/flutter Narrative: Alexandre Aguilar is a 72 year old male with no cardiac history who presents to the emergency department with a chief complaint of left flank pain. Cardiology is being asked to see him because of atrial flutter noted on telemetry and EKG. He did have atrial flutter with rapid ventricular response initially on presentation. He converted to sinus rhythm after receiving diltiazem IV push in the emergency department. He denies having any cardiac history including any arrhythmias, congestive heart failure, coronary artery disease. He denies feeling any palpitations, chest pain, or shortness of breath. His only complaint is the left flank pain. Review of Systems Review of Systems: All systems reviewed & are unremarkable except as noted in HPI and below [facility] Surgical History Surgical History History of carpal tunnel release (2016) Hx of cataract removal with insertion of prosthetic lens Family History Family History Father Cerebrovascular accident Mother Parkinsons Sibling CHF (congestive heart failure) Social History Social History Smoking packs per day: 1 Smoking cigarettes per day: 20.0 Smoking status: Current every day smoker Tobacco type: cigarettes Second hand tobacco smoke exposure: No Alcohol intake: never Substance use: never Do You Feel Safe in your Home?: Yes Lack of Transportation: No Lack of Food: Never True Current Housing: I Have Housing Concerned About Future Housing: No Difficulty Paying Gas/Electric Bills: No Difficulty Paying for Meds: No Currently Unemployed: No Education: Bachelor's Degree Difficulty w/ Childcare or Family Care: No Spiritual care concerns: No Meds Home Medications and Allergies Home Medications Medication Instructions Recorded Confirmed Type hydrocodone 5 mg-acetaminophen 325 1 tablet PO Q8H PRN pain #14 tabs 03/06/23 03/08/23 Rx mg tablet sildenafil 100 mg tablet 100 mg PO DAILY PRN Erectile 03/08/23 03/08/23 History Dysfunction Allergies Allergy/AdvReac Type Severity Reaction Status Date / Time No Known Allergies Allergy Verified 03/06/23 11:53 Vital Signs Vital Signs - 24 hr 03/08/23 10:00 03/08/23 12:00 03/08/23 12:00 Temperature 37.0 C Pulse Rate 89 96 86 Respiratory Rate 16 Blood Pressure 118/64 Pulse Oximetry 90 Oxygen Delivery 03/08/23 14:00 03/08/23 12:00 03/08/23 15:56 Temperature 37.2 C Pulse Rate 79 81 Respiratory Rate 12 Blood Pressure 120/71 Pulse Oximetry 91 Oxygen Delivery Room Air 03/08/23 16:00 03/08/23 16:00 03/08/23 18:00 Temperature Pulse Rate 76 82
[2023-03-09 10:34] LABS: Folic Acid 13.1 ng/mL (2.76->20)
--- NOTE | 2023-03-09 13:18 | WPDHPUPDATE1 ---
History and Physical Update Update Date/Time: 03/09/23 13:18 History and Physical has been reviewed, including an updated exam of the patient. There are NO changes in the patient's condition. Risks, benefits, and alternatives have been discussed and questions answered. Patient agrees to proceed with procedure. Proceed with cystoscopy, left retrograde, left ureteroscopy with stone extraction, possible laser, stent placement
--- NOTE | 2023-03-09 13:28 | WPDANESEPPF ---
Anes - Initial Pre Proc Eval Procedure: Operation Date: 03/09/23 14:45 Proposed Procedures p Cystoscopy, Left Ureteroscopy, Possible Left Retrograde Pyelogram, Possible Left Stone Extraction, Possible Left Stent Placement, Possible Holmium Laser - Nathaniel Nova MD Date/Time: 03/09/23 13:28 Surgeon: Ladarius Blancas MD Pre Op Diagnosis: a/flutter Patient Data Age: 72 Gender: M Height: 1.83 m Weight: 86.3 kg Last Vital Signs Temp 36.9 C 03/09/23 11:49 Pulse 79 03/09/23 12:00 Resp 24 H 03/09/23 12:00 BP 158/83 H 03/09/23 11:49 Pulse Ox 90 03/09/23 12:00 O2 Del Method Room Air 03/09/23 12:00 O2 Flow Rate 2 03/07/23 21:33 Allergies Allergy/AdvReac Type Severity Reaction Status Date / Time No Known Allergies Allergy Verified 03/06/23 11:53 Home Medications Medication Instructions Recorded Confirmed Type hydrocodone 5 mg-acetaminophen 325 1 tablet PO Q8H PRN pain #14 tabs 03/06/23 03/08/23 Rx mg tablet sildenafil 100 mg tablet 100 mg PO DAILY PRN Erectile 03/08/23 03/08/23 History Dysfunction Laboratory Tests 03/09/23 04:30 WBC 9.2 K/mm3 (4.5-10.0) RBC 3.64 L M/mm3 (4.6-6.20) Hgb 12.2 L g/dL (14.0-18.0) Hct 37.3 L % (42.0-52.0) MCV 102.5 H fl (80-100) MCH 33.5 pg (26-34) MCHC 32.7 g/dl (32-36) RDW 13.2 % (11.5-14.5) Plt Count 139 L k/mm3 (150-375) MPV 10.4 fl (7.4-10.4) Immature Gran % (Auto) 0.3 % (0-0.5) Neut % (Auto) 67.8 % (45.5-73.1) Lymph % (Auto) 19.8 % (18.3-44.2) [place] % (Auto) 8.9 H % (2.6-8.5) Eos % (Auto) 2.7 % (0-4.4) Baso % (Auto) 0.5 % (0.2-1.2) Lymph # (Auto) 1.82 K/mm3 (0.9-3.2) [place] # (Auto) 0.8 H K/mm3 (0.1-0.6) Eos # (Auto) 0.3 K/mm3 (0-0.3) Baso # (Auto) 0.1 K/mm3 (0.0-0.1) Abs Immat Gran (auto) 0.03 K/mm3 (0.00-0.031) Absolute Neuts (auto) 6.2 K/mm3 (1.3-6.7) Absolute Nucleated RBC 0.0 K/mm3 (0.0-0.012) Nucleated RBC % 0.0 % (0.0-0.2) Sodium 140 mmol/L (137-145) Potassium 4.1 mmol/L (3.4-5.0) Chloride 115 H mmol/L (98-107) Carbon Dioxide 21 L mmol/L (22-30) Anion Gap 4 L mmol/L (8-16) BUN 31 H mg/dL (9-20) Creatinine 1.30 mg/dL (0.7-1.3) Estim Creat Clear Calc 49 ml/min Estimated GFR 54 L (59 - ) Glucose 94 mg/dL (65-110) Calcium 8.0 L mg/dL (8.4-10.2) Phosphorus 2.7 mg/dL (2.5-4.5) Magnesium 2.1 mg/dL (1.6-2.3) Vitamin B12 285.0 pg/mL (239-931) Folate 13.1 ng/mL (2.76->20) Patient hx anesthesia problems: none Family hx anesthesia problems: none Results Review: All pre-operative results and documents have been reviewed as part of the pre-operative evaluation. PENDING SALE TO [facility] Surgical History Surgical History History of carpal tunnel release (2016) Hx of cataract removal with insertion of prosthetic lens Family History Family History Father Cerebrovascular accident Mother Parkinsons Sibling CHF (congestive heart failure) Social History Social History Smoking packs per day: 1 Smoking cigarettes per day: 20.0 Smoking status: Current every day smoker Tobacco type: cigarettes Second hand tobacco smoke exposure: No Alcohol intake: never Substance use: never Do You Feel Safe in your Home?: Yes Lack of Transportation: No Lack of Food: Never True Current Housing: I Have Housing Concerned About Future Housing: No Difficulty Paying Gas/Electric Bills: No Difficulty Paying for Meds: No Currently Unemployed: No Education: Bachelor's Degree Difficulty w/ Childcare or Family Care: No Spiritual care concerns: No Anes - Eval Final PreProcedure Day of Procedure
--- NOTE | 2023-03-09 14:07 | SUR.PREOP ---
Taken to CT and returned to preop.
--- NOTE | 2023-03-09 14:27 | SUR.PREOP ---
1415 Surgery cancelled, report given to floor RN, returned to room 203.
--- NOTE | 2023-03-09 17:52 | PC.NURSE ---
Patient refused Iron (see eMAR), states that she has been constipated from it in the past and is concerned she will have issues with her ostomy.
--- NOTE | 2023-03-09 18:42 | PM.IMPN ---
Progress Note: A&P Assessment and Plan (1) Left ureteral stone: Code(s): N20.1 - Calculus of ureter Status: Acute (2) Atrial fibrillation/flutter: Code(s): I48.91 - Unspecified atrial fibrillation; I48.92 - Unspecified atrial flutter Status: Acute (3) Nicotine dependence, cigarettes, uncomplicated: Code(s): F17.210 - Nicotine dependence, cigarettes, uncomplicated Status: Acute (4) Male erectile dysfunction, unspecified: Code(s): N52.9 - Male erectile dysfunction, unspecified Status: Acute Plan Place patient in IMU under observation status Continues cardiac tele monitoring Patient admitted with 3 mm left UVJ calculus causing symptoms Patient admitted with AFib/a flutter, which converted to sinus rhythm after treatment will diltiazem He is currently at normal sinus rhythm Patient received aggressive IV pain management for left ureteral pain Patient received 2L of IV fluids in the ED Started on aggressive IV hydration with 150 cc/hour normal saline which likely helped with expulsion of ureteral calculus at UVJ into bladder causing improvement in left flank pain Cut down IV fluids to 75 cc per hours Strict input and output monitoring Strain urine for calculi Patient started on IV Levaquin with pharmacy to dose for associated leukocytosis and possible UTI with ureteral calculi Leukocytosis has resolved on IV Levaquin Urology evaluated patient yesterday and planning to take him later on today to the OR for cystoscopy and JJ stent placement Cardiology evaluated patient for new onset AFib Started patient on low-dose metoprolol to encourage maintenance of sinus rhythm Patient may be a candidate for anticoagulation if he has a recurrence Patient to be discharged home on 30 day tele monitoring as per Cardiology who will follow him as an outpatient ? Patient seen and examined at bedside during my morning rounds ? Collaborated with patient's nurse at the bedside in detail and addressed all concerns ? Labs, electrolytes, radiology, investigations and test results reviewed ? Consult/Nursing/Ancilliary notes on the chart reviewed and appreciated ? Spoke with patient/family at the bedside and answered all the questions that they had Repeat labs in a.m. Electrolyte replacement as per protocol. Patient will be monitored very closely on the floor. Further recommendations as per the hospital course. Dependence on nicotine from cigarettes: Tobacco abuse counseling: Patient smokes cigarettes on a chronic basis. Strictly advised patient to cut down on or quit smoking. Nicotine patch ordered. ~5 minutes spent on tobacco cessation counseling with the patient. Websites - http://smokefree.gov & http://www.quitnet.com ? Quitlines - 6-487-TTQE-NOW ( ) ? Smokefree Apps - [employer] Steve ? Text Messages - SmokefreeTXT ([place] [id number]) Time Spent With Patient Time with patient: 15 - 25 minutes Subjective Date/time seen: 03/09/23 18:42 Interval history: Patient lying in bed during my morning rounds. His left-sided flank pain has improved. Awaiting Urology evaluation for JJ stent placement. Review of Systems Review of Systems: 14 systems were reviewed with pertinent positives and negatives per HPI. Except as documented in the HPI/progress notes, all other systems were reviewed and are negative. All systems reviewed & are unremarkable except as noted in HPI and below Exam Narrative: PHYSICAL EXAMINATION: Vital signs: Please see the chart General physical exam: For patient lying in bed, appears to be tired and fatigued, complains of left flank pain Head/eyes: Atraumatic, EOMI, PERRLA ENT: Moist mucous membranes, nasal passages clear Neck: Supple, full range of motion, trachea midline CVS: S1 + S2, irregularly irregular rhythm, no murmurs Respiratory: Bilaterally fair air entry in both lung clemens, mild B/L crackles, symmetric chest expansion, no distress Abdomen: So
[2023-03-09] MEDS: SODIUM CHLORIDE 0.9% IV 1,000 ML 75 ML IV CONT (19:54)
[2023-03-09] MEDS: KETOROLAC 15 MG/ML VIAL (*BKC) IV PUSH (19:58)
[2023-03-10] VITALS (10 sets, daily range): BP systolic 144–145; BP diastolic 77–82; PULSE 72–99; RESP 16–20; TEMP 36.6–36.9; O2SAT 91–94
[2023-03-10 05:01] LABS: Basophils Absolute Auto 0.1 K/mm3 (0.0-0.1); Basophils Percent Auto 0.5 % (0.2-1.2); Eosinophils Absolute Auto 0.4 K/mm3 (0-0.3); Eosinophils Percent Auto 4.2 % (0-4.4); Hematocrit 36.8 % (42.0-52.0); Hemoglobin 12.1 g/dL (14.0-18.0); Immature Granulocyte Absolute 0.04 K/mm3 (0.00-0.031); Immature Granulocyte Percent A 0.4 % (0-0.5); Mean Corpuscular HGB Conc 32.9 g/dl (32-36); Mean Corpuscular Hemoglobin 33.3 pg (26-34); Mean Corpuscular Volume 101.4 fl (80-100); Mean Platelet Volume 10.2 fl (7.4-10.4); Monocytes Absolute Auto 0.8 K/mm3 (0.1-0.6); Monocytes Percent Auto 7.7 % (2.6-8.5); Neutrophils Absolute Auto 7.4 K/mm3 (1.3-6.7); Neutrophils Percent Auto 73.2 % (45.5-73.1); Platelet Count Result 152 k/mm3 (150-375); Red Blood Count 3.63 M/mm3 (4.6-6.20); Red Cell Distribution Width 13.1 % (11.5-14.5)
[2023-03-10 05:17] LABS: Anion Gap 6 mmol/L (8-16); Blood Urea Nitrogen 20 mg/dL (9-20); Calcium 8.3 mg/dL (8.4-10.2); Carbon Dioxide 22 mmol/L (22-30); Chloride 113 mmol/L (98-107); Estimated CRCL calculation 63 ml/min; Estimated Glomerular Filt Rate > 60; Glucose 96 mg/dL (65-110); Sodium 141 mmol/L (137-145)
[2023-03-10] MEDS: levoFLOXacin 250 MG/D5W 50 ML 250 MG/50 ML BAG 50 MG IVPB (09:17)
[2023-03-10] MEDS: METOPROLOL SUCCINATE EXT REL 12.5 MG TABCR PO (09:20)
[2023-03-10] MEDS: TAMSULOSIN HCL 0.4 MG CAPSULE PO (09:21)
--- NOTE | 2023-03-10 14:38 | PM.DS ---
DS: Admitting Diagnosis Discharge Date 03/10/2023: Admitting Diagnosis Left ureteral calculus Renal colic Atrial fibrillation/flutter DS: Discharge Diagnosis Discharge Diagnosis (1) Renal colic: Code(s): N23 - Unspecified renal colic Status: Acute (2) Diastolic dysfunction: Onset Date: 02/2023 Code(s): I51.89 - Other ill-defined heart diseases Status: Acute (3) Left ureteral stone: Code(s): N20.1 - Calculus of ureter Status: Acute (4) Atrial fibrillation/flutter: Code(s): I48.91 - Unspecified atrial fibrillation; I48.92 - Unspecified atrial flutter Status: Acute (5) Nicotine dependence, cigarettes, uncomplicated: Code(s): F17.210 - Nicotine dependence, cigarettes, uncomplicated Status: Acute DS: Summary Hospital Course Reason for hospitalization: Patient came to the ER for evaluation with worsening left flank pain Hospital Course: 03/07/2023: 72-year-old male presenting with left-sided flank pain due to kidney stone.? Incidentally found to be in AFib with RVR.? Kidney stone pain was controlled with Dilaudid, Toradol and Tylenol.? Patient was given diltiazem 10 mg x 2 and then started on a diltiazem drip.? Chads Vasc of 1 for age.? Given 325 mg aspirin.? Patient be admitted hospital for further management of the atrial fibrillationNorco which helped with the pain but then the pain recurred.? He took another [place] later in the day which did not help.? He then came to the hospital for pain control.? He denies fever chills nausea vomiting abdominal pain. HOSPITAL COURSE ... Date of Admission - 03/09/2023: Progress Note: A&P Assessment and Plan (1) Left ureteral stone: ?Code(s): N20.1 - Calculus of ureter ?Status:?Acute (2) Atrial fibrillation/flutter: ?Code(s): I48.91 - Unspecified atrial fibrillation; I48.92 - Unspecified atrial flutter ?Status:?Acute (3) Nicotine dependence, cigarettes, uncomplicated: ?Code(s): F17.210 - Nicotine dependence, cigarettes, uncomplicated ?Status:?Acute (4) Male erectile dysfunction, unspecified: ?Code(s): N52.9 - Male erectile dysfunction, unspecified ?Status:?Acute Plan Place patient in IMU under observation status Continues cardiac tele monitoring Patient admitted with 3 mm? left UVJ calculus causing symptoms Patient admitted with AFib/a flutter, which converted to sinus rhythm after treatment will diltiazem He is currently at normal sinus rhythm Patient received aggressive IV pain management for left ureteral pain Patient received 2L of IV fluids in the ED Started on aggressive IV hydration with 150 cc/hour normal saline which likely helped with expulsion of ureteral calculus at UVJ into bladder causing improvement in left flank pain Cut down IV fluids to 75 cc per hours Strict input and output monitoring Strain urine for calculi Patient started on IV Levaquin with pharmacy to dose for associated leukocytosis and possible UTI with ureteral calculi Leukocytosis has resolved on IV Levaquin Urology evaluated patient yesterday and planning to take him later on today to the OR for cystoscopy and JJ stent placement Cardiology evaluated patient for new onset AFib Started patient on low-dose metoprolol to encourage maintenance of sinus rhythm Patient may be a candidate for anticoagulation if he has a recurrence Patient to be discharged home on 30 day tele monitoring as per Cardiology who will follow him as an outpatient 03/10/2023: Patient is feeling better today his left flank has completed resolved. His left UVJ calculus has dropped in the bladder with aggressive IV hydration. Urology evaluated the patient and they will not do any procedures. He is cleared from Urology to be discharged. Will continue with Flomax 0.4 mg p.o. daily. He received 3 days of antibiotics in the form of IV Levaquin in the hospital. I will discharge him on 2 more days of oral antibiotics to complete 5 days cou
--- NOTE | 2023-03-10 15:19 | PC.NURSE ---
discharged - accompanied pt in w/c to heart care office for 30 day tele monitoring
== END 2023-03-10 15:18 | disposition home or self-care (01) ==
LOC: ANHED 22:13 → ANHIMU 22:34
PROVIDERS: Urology; Admitting Provider Internal Medicine; Emergency Provider Emergency Medicine; PCP Family Medicine Adolescent Medicine; Visit Provider Family Medicine
PROC: (CPT 52352; principal; 2023-03-09 14:45)
DX: N20.1 Calculus of ureter (principal); I48.92 Unspecified atrial flutter; I48.91 Unspecified atrial fibrillation; I51.89 Other ill-defined heart diseases; K80.20 Calculus of gallbladder without cholecystitis without obstruction; N52.9 Male erectile dysfunction, unspecified; F17.210 Nicotine dependence, cigarettes, uncomplicated; Z79.1 Long term (current) use of non-steroidal anti-inflammatories (NSAID); Z82.49 Family history of ischemic heart disease and other diseases of the circulatory system
CPT/HCPCS: 36415; 71046; 74176; 80048; 81001; 82607; 82746; 83735; 84100; 84443; 85025; 87086; 93005; 93306; 96361; 96365; 96366; 96375; 96376; 99285; A9270; G0378; J1170; J1885; J1956; J2405; J7030

== ENCOUNTER 2023-09-06 13:01 | Emergency (ER) | payer BC, SELFPAY ==
[2023-09-06 13:16] VITALS: BP 151/76; PULSE 89; RESP 16; TEMP 38.1; O2SAT 100
--- NOTE | 2023-09-06 13:22 | ED.URI ---
HPI - URI/Sore Throat General Chief Complaint: Upper Respiratory Infection Stated Complaint: Sinus/Bodyaches Time Seen by Provider: 09/06/23 13:35 Source: patient and RN notes reviewed Mode of arrival: ambulatory Limitations: no limitations History of Present Illness HPI Narrative: 73-year-old male presents with concern for 2 week history of body aches, intermittent fever, cough, runny nose, sinus drainage. He reports he has been sleeping a lot more than usual. He denies shortness of breath. He denies history of breathing problems. He denies known sick contacts MD elicited complaint: cough, nasal congestion and sinus pain Related Data Home Medications Medication Instructions Recorded Confirmed sildenafil 100 mg tablet 100 mg PO DAILY PRN Erectile 03/08/23 09/06/23 Dysfunction Allergies Allergy/AdvReac Type Severity Reaction Status Date / Time hydrocodone AdvReac Intermediate Other Verified 07/01/23 11:18 Review of Systems Review of Systems: CONSTITUTIONAL: Reports malaise, chills, sweats, fever. EYES: Denies visual changes, redness, or discharge. ENT: Reports rhinorrhea, congestion, sinus pain. Denies otalgia and sore throat. CARDIOVASCULAR: Denies chest pain, palpitations, or edema. RESPIRATORY: Reports cough. Denies dyspnea. GASTROINTESTINAL: Denies abdominal pain, nausea, vomiting, diarrhea SKIN: Denies rash or itching. MUSCULOSKELETAL: Reports myalgia. NEUROLOGIC: Reports headache. All systems reviewed & are unremarkable except as noted in HPI and below PMFSH Past Medical History Medical History (Updated 09/06/23 @ 13:36 by Christi Vee NP) Left ureteral stone Surgical History Surgical History History of carpal tunnel release (2016) Hx of cataract removal with insertion of prosthetic lens Family History Family History Father Cerebrovascular accident Mother Parkinsons Sibling CHF (congestive heart failure) Social History Social History Smoking packs per day: 0.25 Smoking cigarettes per day: 5.0 Years smoked: 25 Smoking pack-years: 6.25 Smoking status: Current every day smoker Tobacco type: cigarettes Second hand tobacco smoke exposure: No Alcohol intake: never Substance use: never Substance use type: does not use Do You Feel Safe in your Home?: Yes Lack of Transportation: No Lack of Food: Never True Current Housing: I Have Housing Concerned About Future Housing: No Difficulty Paying Gas/Electric Bills: No Difficulty Paying for Meds: No Currently Unemployed: No Education: Bachelor's Degree Difficulty w/ Childcare or Family Care: No Living arrangements: alone Spiritual care concerns: No Comments At time of signature, agree with nursing past medical, surgical, social and family history. There is no relevant family history pertinent to the presenting complaint Exam Narrative: GENERAL: Nontoxic-appearing, well-nourished, and in no acute distress. HEAD: Normocephalic EYES: PERRLA, conjunctivae clear ENT: Nares clear, turbinates edematous and erythematous. Mucous membranes moist. TM pearly [place] with dull light reflex bilaterally; no tragal tenderness. Oropharynx not erythematous without lesions. Tonsils not enlarged and without exudate, no drooling, no hoarseness, no trismus, uvula midline. NECK: Supple. No lymphadenopathy CHEST: Scattered expiratory wheeze, otherwise Clear to auscultation, breath sounds equal. No rhonchi, rales, or stridor. No respiratory distress, speaks in full sentences. HEART: Regular rate and rhythm. No murmur heard. SKIN: Warm, dry, no rash. NEURO: Alert and oriented x3. PSYCH: Normal mood and affect Course Course Emergency Course: Patient is aware of diagnosis, understands and agrees to treatment plan.
[2023-09-06 13:33] LABS: EDINFLUASCREEN Negative; EDINFLUBSCREEN Negative
== END 2023-09-06 13:40 | disposition home or self-care (01) ==
PROVIDERS: Emergency Provider Nurse Practitioner; PCP Family Medicine Adolescent Medicine
DX: J32.9 Chronic sinusitis, unspecified (principal); J40 Bronchitis, not specified as acute or chronic; F17.210 Nicotine dependence, cigarettes, uncomplicated; Z96.1 Presence of intraocular lens; Z98.42 Cataract extraction status, left eye; Z98.41 Cataract extraction status, right eye
CPT/HCPCS: 87804; 99213; G0463

== ENCOUNTER 2023-10-29 04:12 | Day surgery (SDC) | payer BC, SELFPAY ==
[2023-10-07 10:57] VITALS: BMI 23.6
[2023-10-29] MEDS: LACTATED RINGERS 1,000 ML 150 ML IV CONT (10:58)
[2023-10-29 11:01] VITALS: BP 133/81; PULSE 84; RESP 19; TEMP 36.1; O2SAT 97
--- NOTE | 2023-10-29 11:10 | WPDANESEPPF ---
Anes - Initial Pre Proc Eval Procedure: Operation Date: 10/29/23 12:30 Proposed Procedures p Colonoscopy - Yvan Chavez MD Date/Time: 10/29/23 11:10 Surgeon: Yvan Chavez MD Pre Op Diagnosis: Personal hx. colon polyps Patient Data Age: 73 Gender: M Height: 1.83 m Weight: 77.2 kg Last Vital Signs Temp 36.1 C L 10/29/23 11:01 Pulse 84 10/29/23 11:01 Resp 19 10/29/23 11:01 BP 133/81 10/29/23 11:01 Pulse Ox 97 10/29/23 11:01 O2 Del Method Room Air 10/29/23 11:01 Allergies Allergy/AdvReac Type Severity Reaction Status Date / Time hydrocodone AdvReac Intermediate Other Verified 10/29/23 10:59 Home Medications Medication Instructions Recorded Confirmed Type sildenafil 100 mg tablet 100 mg PO DAILY PRN Erectile 03/08/23 10/29/23 History Dysfunction metoprolol succinate 25 mg 12.5 mg PO DAILY #15 tabs 03/10/23 10/29/23 Rx tablet,extended release 24 hr multivit with minerals-iron 18 1 tablet PO DAILY 10/07/23 10/29/23 History mg-folic ac 400 mcg-vit K 25 mcg tablet (Adults Multivitamin) Patient hx anesthesia problems: none Family hx anesthesia problems: none Results Review: All pre-operative results and documents have been reviewed as part of the pre-operative evaluation. [facility] Past Medical History Medical History Left ureteral stone Surgical History Surgical History History of carpal tunnel release (2016) Hx of cataract removal with insertion of prosthetic lens Family History Family History Father Cerebrovascular accident Mother Parkinsons Sibling CHF (congestive heart failure) Social History Social History Smoking packs per day: 0.5 Smoking cigarettes per day: 10.0 Years smoked: 20 Smoking pack-years: 10.00 Smoking status: Current every day smoker Tobacco type: cigarettes Second hand tobacco smoke exposure: No Alcohol intake: never Substance use: never Substance use type: does not use Do You Feel Safe in your Home?: Yes Lack of Transportation: No Lack of Food: Never True Current Housing: I Have Housing Concerned About Future Housing: No Difficulty Paying Gas/Electric Bills: No Difficulty Paying for Meds: No Currently Unemployed: No Education: Bachelor's Degree Difficulty w/ Childcare or Family Care: No Living arrangements: with family Spiritual care concerns: No Anes - Eval Final PreProcedure Day of Procedure 10/29/23 11:10 Patient weight: normal Heart: regular rate and rhythm Lungs: decreased breath sounds Airway: Mallampati scale class II Neurological: alert and oriented Last oral intake: >/= 8 hours ASA classification: III Emergent: no Anesthetic plan: proceed Anesthesia type and monitoring: general GIVS and standard monitoring Results Review: All pre-operative results and documents have been reviewed as part of the pre-operative evaluation. Informed Consent: The patient's anesthetic plan and its attendant risks and benefits were discussed with the patient/family/POA. Questions were solicited and answers provided to the satisfaction of the patient/family/POA.
--- NOTE | 2023-10-29 11:21 | PM.HPGS ---
History of Present Illness History of Present Illness Consent: Risks, benefits, and alternatives have been discussed and questions answered. Patient agrees to proceed with procedure. Chief complaint: Personal hx. colon polyps Narrative: Alexandre Aguilar is a 73 year old male with colon polyp 7 years ago Review of Systems Review of Systems: All systems reviewed & are unremarkable except as noted in HPI and below PMFSH Past Medical History Medical History (Updated 10/29/23 @ 11:22 by Yvan Chavez MD) Colon polyp Left ureteral stone Surgical History Surgical History History of carpal tunnel release (2016) Hx of cataract removal with insertion of prosthetic lens Family History Family History Father Cerebrovascular accident Mother Parkinsons Sibling CHF (congestive heart failure) Social History Social History Smoking packs per day: 0.5 Smoking cigarettes per day: 10.0 Years smoked: 20 Smoking pack-years: 10.00 Smoking status: Current every day smoker Tobacco type: cigarettes Second hand tobacco smoke exposure: No Alcohol intake: never Substance use: never Substance use type: does not use Do You Feel Safe in your Home?: Yes Lack of Transportation: No Lack of Food: Never True Current Housing: I Have Housing Concerned About Future Housing: No Difficulty Paying Gas/Electric Bills: No Difficulty Paying for Meds: No Currently Unemployed: No Education: Bachelor's Degree Difficulty w/ Childcare or Family Care: No Living arrangements: with family Spiritual care concerns: No Meds Home Medications and Allergies Home Medications Medication Instructions Recorded Confirmed Type sildenafil 100 mg tablet 100 mg PO DAILY PRN Erectile 03/08/23 10/29/23 History Dysfunction metoprolol succinate 25 mg 12.5 mg PO DAILY #15 tabs 03/10/23 10/29/23 Rx tablet,extended release 24 hr multivit with minerals-iron 18 1 tablet PO DAILY 10/07/23 10/29/23 History mg-folic ac 400 mcg-vit K 25 mcg tablet (Adults Multivitamin) Allergies Allergy/AdvReac Type Severity Reaction Status Date / Time hydrocodone AdvReac Intermediate Other Verified 10/29/23 10:59 Vital Signs Vital Signs - 24 hr 10/29/23 11:01 Temperature 97 F L Pulse Rate 84 Respiratory Rate 19 Blood Pressure 133/81 Pulse Oximetry 97 Oxygen Delivery Room Air Exam Const: General: comfortable and no acute distress HENMT: Face/Nose/Sinus: Normal nares present Eyes: General: appearance normal, both eyes and all related structures Neck: Neck: no JVD Resp: Auscultation: clear to auscultation bilaterally Cardio: Rate: regular rate Rhythm: regular rhythm GI: Inspection: non-distended GI Palp: Yes Soft to palpation Skin: General skin exam: normal color Neuro: General: gait normal Speech: normal speech Extrem: General: normal to inspection Psych: Mental Status: mental status grossly normal Assessment and Plan Assessment and plan (1) Colon polyp: Code(s): K63.5 - Polyp of colon Status: Acute Assessment and Plan: colonoscopy
[2023-10-29 11:33] VITALS: BP 100/54; PULSE 79; RESP 22; O2SAT 97
[2023-10-29 11:43] VITALS: BP 100/61; PULSE 77; RESP 20; O2SAT 100
[2023-10-29 11:55] VITALS: BP 108/70; PULSE 79; RESP 18; O2SAT 100
== END 2023-10-29 12:07 | disposition home or self-care (01) ==
PROVIDERS: PCP Family Medicine Adolescent Medicine; Visit Provider Internal Medicine Gastroenterology
PROC: 0DJD8ZZ Inspection of Lower Intestinal Tract, Via Natural or Artificial Opening Endoscopic (ICD-10-PCS; CPT 45378; principal; 2023-10-29 12:30)
DX: Z12.11 Encounter for screening for malignant neoplasm of colon (principal); Z86.010 Personal history of colon polyps; K64.8 Other hemorrhoids; F17.210 Nicotine dependence, cigarettes, uncomplicated
CPT/HCPCS: 45378; J2704; J7120

== ENCOUNTER 2024-05-09 02:08 | Inpatient (IN) | payer BC, MEDICARE, SELFPAY ==
[2024-05-09] VITALS (47 sets, daily range): BP systolic 119–175; BP diastolic 68–106; PULSE 69–97; RESP 14–39; TEMP 36.4–36.7; O2SAT 94–100; BMI 23.2; BMI 23.1
--- NOTE | 2024-05-09 | ECHO_ITS ---
Patient Info Name: Alexandre Aguilar Age: 73 years : 1950 Gender: Male Ht: 72 in Wt: 170 lbs BSA: 1.98 m2 HR: 72 bpm BP: 145 / 83 mmHg Heart Rhythm: Sinus Rhythm Technical Quality: Good Exam Date: 05/09/2024 3:18 PM Exam Location: Echo Lab Patient Status: Inpatient Admit Date: 05/09/2024 Staff Ordering Physician: Yari Christian APRN Rn Cvor: Daniela Onofre RDCS Attending Provider: Michelle Britton DO Referring Physician: Gino BOLANOS; Exam Type: CA echo doppler color flow Study Info Indications - Chest pain Complete two-dimensional, color flow and Doppler transthoracic echocardiogram is performed. Summary 1. Left ventricular chamber dimension is normal. 2. Left ventricular systolic function is mildly reduced, estimated at 45-50%. 3. There is mildly increased left ventricular wall thickness. 4. The left ventricular diastolic function is grade I diastolic dysfunction. 5. Right ventricular systolic function is normal. 6. Right atrial chamber dimension is mildly enlarged. 7. There is mild mitral valve regurgitation. 8. There is mild tricuspid valve regurgitation. 9. There is mild pulmonic regurgitation. Left Ventricle Left ventricular chamber dimension is normal. Left ventricular systolic function is mildly reduced, estimated at 45-50%. There is mildly increased left ventricular wall thickness. The left ventricular diastolic function is grade I diastolic dysfunction. Right Ventricle Right ventricular chamber dimension is normal. Right ventricular systolic function is normal. Left Atria Left atrial chamber dimension is normal. Right Atria Right atrial chamber dimension is mildly enlarged. Atrial Septum Intact interatrial septum visualized by color flow imaging. Aortic Valve The aortic valve is probable trileaflet. There is no aortic valve stenosis. There is no aortic valve regurgitation. Pulmonic Valve The pulmonic valve is not well visualized. There is mild pulmonic regurgitation. Mitral Valve The mitral valve has thickened leaflets. There is mild mitral valve regurgitation. Tricuspid Valve There is mild tricuspid valve regurgitation. Pericardium/Pleural The pericardium appears epicardial fat pad. There is no pericardial effusion. Inferior Vena Cava Normal inferior vena cava with >50% collapse upon inspiration consistent with normal right atrial pressure, 3 mmHg. Aorta The aortic root size at the sinus of Valsalva is normal. Left Ventricular Outflow Tract Name Value Normal LVOT 2D LVOT Diameter 2.0 cm LVOT Doppler LVOT Peak Gradient 3 mmHg LVOT Mean Gradient 2 mmHg LVOT VTI 19 cm LVOT VTI/AV VTI Ratio 0.8 LVOT Stroke Volume 57 ml LVOT CO 11.7 l/min LVOT CI 5.9 l/min/m2 Pulmonic Valve Name Value Normal PV Doppler PV Peak Gradient 2 mmHg Mitral Valve Name Value Normal MV Doppler MV Decel Bartholomew 244 cm/s2 MV PHT 58 ms MV Area (PHT) 3.8 cm2 4.0-5.0 MV Diastolic Function MV E Peak Velocity 49 cm/s MV A Peak Velocity 68 cm/s MV E/A 0.7 MV Decel Time 201 ms MV Annular TDI MV E/e' (Septal) 7.1 <=8.0 MV E/e' (Lateral) 6.4 <=8.0 MV E/e' (Average) 6.7 Tricuspid Valve Name Value Normal TV Regurgitation Doppler TR Peak Velocity 247 cm/s TR Peak Gradient 20 mmHg Estimated PAP/RSVP RA Pressure 3 mmHg <=5 PA Systolic Pressure 27 mmHg <36 RV Systolic Pressure 27 mmHg <36 Aorta Name Value Normal Ascending Aorta Ao Root Diameter (MM) 3.7 cm Ao Root Diam Index (MM) 1.9 cm/m2 Aortic Valve Name Value Normal AV Doppler AV Peak Velocity 104 cm/s AV Peak Gradient 4 mmHg AV Mean Gradient 3 mmHg AV VTI 24 cm AV Area (Cont Eq VTI) 2.4 cm2 >=3.0 AV Area (Cont Eq Jake) 2.5 cm2 AV Regurgitation 2D LVOT Area 3.1 cm2 Ventricles Name Value Normal LV Dimensions 2D/MM IVS Diastolic Thickness (2D) 1.1 cm 0.6-1.0 LVID Diastole (2D) 4.3 cm 4.2-5.8 LVIW Diastolic Thickness (2D) 1.0 cm 0.6-1.0 LVID Systole (2D) 3.7 cm 2.5-4.0 LVOT Diameter 2.0 cm LV Mass (2D Cubed) 156.69 g 88.00-224.00 LV Mass Index (2D Cubed) 79 g/m2 49-115 Relative Wall Thickness (2D) 0.49 LV Fractional Shortening/Ejection Fraction 2D/MM LV Fractional Shortening (2D) 14 % 25-43 LV EF (2D Teicholz) 31 % 52-72 LV Diastolic Volume (4C MOD) 85 ml LV EF (4C MOD) 45 % LV Diastolic Volume (2C MOD) 82 ml LV EF (2C MOD) 47 % LV Diastolic Volume (BP MOD) 86 ml 62-150 LV Diastolic Volume Index (BP MOD) 44 ml/m2 34-74 LV Systolic Volume (BP MOD) 47 ml 21-61 LV Systolic Volume Index (BP MOD) 24 ml/m2 11-31 LV EF (BP MOD) 46 % 52-72 LV Diastolic Length (4C) 7.4 cm LV Systolic Length (4C) 5.9 cm LV Stroke Volume (4C MOD) 38 ml RV Dimensions 2D/MM RVID Diastole (2D) 3.9 cm 2.5-3.5 Atria Name Value Normal LA Dimensions LA Dimension (MM) 2.4 cm 3.0-4.1 LA Volume (4C A-L) 53 ml LA Volume (BP A-L) 59 ml RA Dimensions RA Area (4C) 18.3 cm2 <=18.0 Report Signatures
--- NOTE | ~2024-05-09 | XR_ITS ---
Portable chest x-ray Comparison: 03/08/2023 Clinical History: Chest pain Findings: Lungs are clear, without focal consolidation or pleural effusion. Probable COPD. Cardiome diastinal silhouette is stable. Bones and soft tissues are unremarkable. Impression: Clear lungs. Probable COPD. Reviewed, dictated and finalized at [facility]. Impression: Clear lungs. Probable COPD.
--- OUTSIDE RECORDS SUMMARY | 2024-05-09 02:10 | XMS_ITS | Clinical Summary ---
Author Organization [facility] Address [address] [place] [address] Care Team Providers Care Bartacker Name Role Phone Unavailable Primary Care Provider Unavailabl e Immunizations Immunization Administration Dates Next Due Covid-19, Mrna, Lnp-s, PF, 1 00 mcg/0.5 mL Dose (Moderna) 12/13/2020 Social History Tobacco Use Types Packs/Day Years Used Date Smoking Tobacco: Never Assessed Sex and Gender Information Value Date Recorded Sex Assigned at Not on file Legal Sex Male 11:16 AM CDT Gender Identity Not on file Sexual Orientation Not on file Plan of Treatment Health Maintenance Due Date Last Done Comments Hepatitis C Virus (HCV) Screening 1950 TdaP Immunization 1950 Colonoscopy 1993 Colorectal Cancer Screening 1993 Cologuard 1998 Immunochemical Fecal Occult Blood 1998 Pneumococcal Immunization (5 0+ years) (1 of 1 - PCV) 1998 Zoster Immunization (1 of 2) 1998 Respiratory Syncytial Virus (RSV) Immunization (Adult) (1 - 1-dose 75+ series) 07/26/2023 Influenza Immunization (#1) 2023 SARS-COV-2 Immunization ( season) 2023 12/13/2020, 04/30/2020, 04/02/2020 Hepatitis B Immunization Aged Out No longer eligible based on patient's age to complete this topic Meningococcal Immunization (ACWY) Aged Out No longer eligible b ased on patient's age to complete this topic Rotavirus Immunization Aged Out No lo nger eligible based on patient's age to complete this topic
--- OUTSIDE RECORDS SUMMARY | 2024-05-09 02:10 | XMS_ITS | Continuity of Care Document ---
Author Organization [facility] Address [address] [place] [address] uti [facility] [address] [place] [address] Phone Care Team Providers Care International Trade Compliance Manager Name Role Phone SrinivasRonald crouch Unavailable Unavailable Procedures Procedure Date Office/outpatient Visit, [facility] Advance Directives Directive Yes / No Effective Date File Name No Information Encounters Encounter Description Practice Location Reason(s) For Visit Diagnoses Date Provider Providers Copied on Encounter Office/outpat ient Visit, [facility], [id number] [place] [address] [address], [place], [place], [id number], tel:[phone] [facility] No Information [address]. [address], [facility], . tel:[phone] Referring Provider: Jerrod Fine, [address] [facility] [address], [place], [place], [facility]. tel:[phone] Family History Family Member Type Diagnosis Age At Onset No Information Payers Payer name Insurance type Covered libertarian ID Authoriza tion(s) No Information Social History Type Description Quantity Date Captured Comments Sex Male Smoking Status No Information Chief Complaint And Reason For Visit No Information Reason For Referral Reason For Referral No Information History Of Present Illness Encounter Date Complaint History Of Prese nt Illness No Information Functional Status Date Functional Assessmen t No Information Instructions Date Instruction Additional Infor mation No Information Assessments Type Assessment Date No Information Patient Care Teams Name Effective Dates (start - stop) Status Members No Information
--- NOTE | 2024-05-09 02:11 | ECG_ITS ---
Test Date: 2024-05-09 02:21:27 Measurements Intervals [place] Rate: 91 P: 68 KS: 169 QRS: 46 QRSD: 78 T: -15 QT: 371 QTc: 457 Interpretive Statements SINUS RHYTHM NONSPECIFIC T-WAVE ABNORMALITY- INFERIOR LEADS BASELINE ARTIFACT- I, II, AVR, AVL, AVF, V5-V6 BORDERLINE ECG No previous ECG available for comparison Electronically Signed On 05-09-2024 06:16:35 CDT by Jatinder Valles D.O.
[2024-05-09] MEDS: ASPIRIN 81 MG CHEWABLE TABLET 324 MG PO (02:23)
--- NOTE | 2024-05-09 02:24 | ED.CHESTPAIN ---
HPI - Chest Pain General Chief Complaint: Chest Pain Stated Complaint: chest pain Time Seen by Provider: 05/09/24 02:14 History of Present Illness HPI narrative: 73-year-old male with a past medical history including paroxysmal AFib not on anticoagulation, hypertension. Patient presents to the emergency department for ongoing chest pain. He states he has been having chest pain since yesterday, feels a pulling sensation in the center of her chest that gets worse with activity, exertion. He states he has to rest after he walks a short distance. This is never happened before. No history of cardiac disease or coronary stents to his knowledge. Patient was otherwise in his normal state of health recently. He also states that he has been having some intermittent heartburn sensations and fevers in the middle of night. No chest pain presently during my evaluation. States that he the exerts himself he would return. No syncope, lightheadedness or dizziness. No shortness of breath at rest. No back pain, abdominal pain, jaw pain or neck pain. No trauma or injury. No recent surgeries or procedures. Patient was seen by his primary doctor yesterday and referred to Cardiology and was set up for stress test with nuclear medicine. He presents to the emergency department tonight as he was having an episode of chest pain while trying to go to bed. Related Data Home Medications ?Medication ?Instructions ?Recorded ?Confirmed ?Last Taken ?Type sildenafil 100 mg tablet 100 mg PO DAILY PRN Erectile 03/08/23 05/08/24 Unknown History Dysfunction multivit with minerals-iron 18 1 tablet PO DAILY 10/07/23 05/08/24 Unknown History mg-folic ac 400 mcg-vit K 25 mcg tablet (Adults Multivitamin) Allergies Allergy/AdvReac Type Severity Reaction Status Date / Time hydrocodone AdvReac Intermediate Other Verified 05/09/24 02:14 Review of Systems Review of Systems: As reviewed above in HPI [facility] Past Medical History Medical History Colon polyp Left ureteral stone Surgical History Surgical History Hx of cataract removal with insertion of prosthetic lens History of carpal tunnel release (2016) Family History Family History Father Cerebrovascular accident Mother Parkinsons Sibling CHF (congestive heart failure) Social History Social History Smoking packs per day: 0.5 Smoking cigarettes per day: 10.0 Years smoked: 20 Smoking pack-years: 10.00 Smoking status: Current every day smoker Tobacco type: cigarettes Second hand tobacco smoke exposure: No Alcohol intake: never Substance use: never Substance use type: does not use Do You Feel Safe in your Home?: Yes Lack of Transportation: No Lack of Food: Never True Current Housing: I Have Housing Concerned About Future Housing: No Difficulty Paying Gas/Electric Bills: No Difficulty Paying for Meds: No Currently Unemployed: No Education: Bachelor's Degree Difficulty w/ Childcare or Family Care: No Living arrangements: with family Spiritual care concerns: No Course Vital Signs Vital signs: Vital Signs Pulse Rate 95 05/09/24 02:15 Temperature 36.4 C 05/09/24 02:16 Pulse Rate 82 05/09/24 02:51 Respiratory Rate 23 H 05/09/24 02:51 Blood Pressure 150/95 H 05/09/24 02:51 Pulse Oximetry 97 05/09/24 02:51 Oxygen Delivery Room Air 05/09/24 02:17 MDM - Chest Pain MDM Narrative Medical decision making narrative: 73-year-old male with history of paroxysmal AFib, no anticoagulation use. History of hypertension. Today presents with chest pain and shortness a breath with exertion. Has been going on since yesterday. Also describes a burning heartburn sensation with some subjective fever and chills. Was recently in his normal state of health. Went to his primary doctor yesterday and was set up with nuclear medicine for stress test and cardiology referral. He had an episode of chest pain in the middle of the night so he came to the hospital. No chest pain during my assessment. No neck pain, back pain, abdominal pain. No nausea vomiting. Was otherwise in his normal state of health. States that he walks approximately 3 blocks to go to work and he has to rest between several blocks due to the exertional dyspnea and chest pain. His vital signs show some hypertension but no tachycardia. Saturating 97% on room air. He has clear breath sounds throughout, 2+ symmetric strong pulses in both arms and legs, warm extremities. Suspicion presently is for potential angina versus anginal equivalent, coronary disease, ACS. Low suspicion intrathoracic process such as pneumonia or pneumothorax, low suspicion thromboembolic process. He has no signs of a DVT, meets low Wells criteria at this time. Serial EKG and troponins were ordered. Chest x-ray obtained, placed on residential treatment counselor and pulse oximetry. Currently has no pain and will re-evaluate. Patient's initial chest x-ray on my interpretation shows no cardiomegaly or effusions. Some atherosclerosis of the aorta which is already known. Patient's troponin is elevated 0.445 and given his historical features consistent NSTEMI with angina warrants admission for cardiac evaluation and potential catheterization. He was started on 1 milligram/kilogram Lovenox b.i.d., consult was placed to Cardiology. Waiting hospitalist discussion for admission to an IMU bed. Spoke to the hospitalist Dr. Britton who accepted the patient to an IMU bed. Patient comfortable and made aware of the plan. Serial troponin and EKGs are pending. Medical Records Data Attestation: I reviewed the patient's medical records. Lab Data Attestation: I reviewed the patient's lab results. 05/09/24 02:19 05/09/24 02:19 Labs: Lab Results 05/09/24 Range/Units 02:19 WBC 10.9 H (4.5-10.0) K/mm3 RBC 4.51 L (4.6-6.20) M/mm3 Hgb 15.1 D (14.0-18.0) g/dL Hct 44.6 (42.0-52.0) % MCV 98.9 (80-100) fl MCH 33.5 (26-34) pg MCHC 33.9 (32-36) g/dl RDW 12.8 (11.5-14.5) % Plt Count 234 D (150-375) k/mm3 MPV 9.4 (7.4-10.4) fl Immature Gran % (Auto) 0.4 (0-0.5) % Neut % (Auto) 62.9 (45.5-73.1) % Lymph % (Auto) 26.3 (18.3-44.2) % Jennings % (Auto) 7.0 (2.6-8.5) % Eos % (Auto) 2.8 (0-4.4) % Baso % (Auto) 0.6 (0.2-1.2) % Lymph # (Auto) 2.86 (0.9-3.2) K/mm3 Jennings # (Auto) 0.8 H (0.1-0.6) K/mm3 Eos # (Auto) 0.3 (0-0.3) K/mm3 Baso # (Auto) 0.1 (0.0-0.1) K/mm3 Abs Immat Gran (auto) 0.04 H (0.00-0.031) K/mm3 Absolute Neuts (auto) 6.9 H (1.3-6.7) K/mm3 Absolute Nucleated RBC 0.000 (0.0-0.012) K/mm3 Nucleated RBC % 0.0 (0.0-0.2) % PT 12.9 (11.1-14.7) Seconds INR 0.9 APTT 31.6 (22.3-36.8) Seconds Sodium 143 (137-145) mmol/L Potassium 3.9 (3.4-5.0) mmol/L Chloride 108 H (98-107) mmol/L Carbon Dioxide 24 (22-30) mmol/L Anion Gap 11 (4-12) mmol/L BUN 22 H (9-20) mg/dL Creatinine 1.00 (0.7-1.3) mg/dL Estim Creat Clear Calc 62 ml/min Estimated GFR > 60 (59 - ) Glucose 114 H (65-110) mg/dL Calcium 9.5 (8.4-10.2) mg/dL Total Bilirubin 0.5 (0.2-1.3) mg/dL AST 33 (17-59) U/L ALT 36 (6-50) U/L Alkaline Phosphatase 101 (38-126) U/L Troponin I 0.445 H* (0.000-0.034) ng/mL Total Protein 8.0 (6.3-8.2) g/dL Albumin 4.8 (3.5-5.1) g/dL Lipase 167 (23-300) U/L Imaging Data Attestation: I personally reviewed and interpreted this imaging study as follows: My impression: Chest x-ray for chest pain shows no consolidations, no appreciable pneumothorax, no widening mediastinum. ECG Data EKG #1: Attestation: I personally reviewed and interpreted this ECG as follows: ECG completion date: 05/09/24 ECG completion time: 02:21 Prior ECG tracings: available for review Interpretation: Sinus rhythm, no ST segment elevations, depressions. Some T-wave inversions in leads 3 and V6. Normal sinus rhythm with a QTC 457, QRS 78, SD interval 169 milliseconds. No available previous EKG for comparison Discharge Plan Discharge Clinical Impression: Angina of effort, Non-STEMI (non-ST elevated myocardial infarction) Patient Disposition: Still a Patient Condition: Stable Patient Language: Japanese Prescriptions: No Action bupropion HCl (smoking deter) 150 mg tablet extended release 12 hr 150 mg PO BID Qty: 180 1RF Rx Instructions: 1 tab daily x 3 days then twice a day omeprazole 40 mg capsule,delayed release(DR/EC) 40 mg PO DAILY Qty: 30 0RF sildenafil 100 mg tablet 100 mg PO DAILY PRN (Reason: Erectile Dysfunction) metoprolol succinate 25 mg tablet extended release 24 hr 12.5 mg PO DAILY Qty: 15 0RF Adults Multivitamin 18 mg iron-400 mcg-25 mcg Tablet 1 tablet PO DAILY Follow-up/Referrals: Tho Tenorio MD [Primary Care Provider] - Time of Disposition: 03:50 Quality HEART score for chest pain patients History: moderately suspicious ECG: normal Age: > or = to 65 years Risk factors: 1 or 2 risk factors Troponin: < or = to 1x normal limit Heart score: 4
[2024-05-09 02:26] LABS: Basophils Absolute Auto 0.1 K/mm3 (0.0-0.1); Basophils Percent Auto 0.6 % (0.2-1.2); Eosinophils Absolute Auto 0.3 K/mm3 (0-0.3); Eosinophils Percent Auto 2.8 % (0-4.4); Hematocrit 44.6 % (42.0-52.0); Hemoglobin 15.1 g/dL (14.0-18.0); Immature Granulocyte Absolute 0.04 K/mm3 (0.00-0.031); Immature Granulocyte Percent A 0.4 % (0-0.5); Lymphocytes Absolute Auto 2.86 K/mm3 (0.9-3.2); Lymphocytes Percent Auto 26.3 % (18.3-44.2); Mean Corpuscular HGB Conc 33.9 g/dl (32-36); Mean Corpuscular Hemoglobin 33.5 pg (26-34); Mean Corpuscular Volume 98.9 fl (80-100); Mean Platelet Volume 9.4 fl (7.4-10.4); Monocytes Absolute Auto 0.8 K/mm3 (0.1-0.6); Neutrophils Absolute Auto 6.9 K/mm3 (1.3-6.7); Neutrophils Percent Auto 62.9 % (45.5-73.1); Platelet Count Result 234 k/mm3 (150-375); Red Blood Count 4.51 M/mm3 (4.6-6.20); Red Cell Distribution Width 12.8 % (11.5-14.5); White Blood Count 10.9 K/mm3 (4.5-10.0)
--- OUTSIDE RECORDS SUMMARY | 2024-05-09 02:30 | XMS_ITS | Continuity of Care Document ---
Author Organization [facility] Address [address] [place] [address] [facility] [address] [place] [address] Phone Care Team Providers Care Human Anatomy Teacher Name Role Phone SrinivasRonald crouch Unavailable Unavailable Procedures Procedure Date Office/outpatient Visit, [facility] Advance Directives Directive Yes / No Effective Date File Name No Information Encounters Encounter Description Practice Location Reason(s) For Visit Diagnoses Date Provider Providers Copied on Encounter Office/outpat ient Visit, [facility], [id number] [place] [address] [address], [place], [place], [id number], tel:[phone] [facility], [place] No Information [address]. [address], [facility], . tel:[phone] Referring Provider: Jerrod Fine, [address] [facility] [address], [place], [place], [facility]. tel:[phone] Family History Family Member Type Diagnosis Age At Onset No Information Payers Payer name Insurance type Covered green party ID Authoriza tion(s) No Information Social History [...]
--- OUTSIDE RECORDS SUMMARY | 2024-05-09 02:30 | XMS_ITS | Clinical Summary ---
Author Organization [facility] Address [address] [place] [address] Care Team Providers Care Mixer Machine Feeder Name Role Phone Unavailable Primary Care Provider [...]
[2024-05-09 02:38] LABS: Alanine Aminotransferase 36 U/L (6-50); Albumin Level 4.8 g/dL (3.5-5.1); Alkaline Phosphatase 101 U/L (38-126); Anion Gap 11 mmol/L (4-12); Aspartate Amino Transferase 33 U/L (17-59); Bilirubin,Total 0.5 mg/dL (0.2-1.3); Blood Urea Nitrogen 22 mg/dL (9-20); Calcium 9.5 mg/dL (8.4-10.2); Carbon Dioxide 24 mmol/L (22-30); Chloride 108 mmol/L (98-107); Estimated CRCL calculation 62 ml/min; Estimated Glomerular Filt Rate > 60; Glucose 114 mg/dL (65-110); Lipase 167 U/L (23-300); Potassium 3.9 mmol/L (3.4-5.0); Sodium 143 mmol/L (137-145)
[2024-05-09 02:41] LABS: INR 0.9; Partial Thromboplastin Time 31.6 Seconds (22.3-36.8); Prothrombin Time 12.9 Seconds (11.1-14.7)
[2024-05-09 02:54] LABS: Troponin I 0.445 ng/mL (0.000-0.034)
[2024-05-09] MEDS: ENOXAPARIN 80 MG/0.8 ML SYRINGE 77 MG SUB-Q (03:16)
--- NOTE | 2024-05-09 04:45 | ADMGEN ---
This patient, Alexandre Aguilar, was admitted to IMU Room 211-01. Patient/family oriented to hospital policies and general routines including ID bracelet, bed and alarms, visiting hours, pain management, procedures, bathroom and other care routines, personal items, smoking policy, room service/diet, and visiting hours. Information on how to activate the Rapid Response Team has been discussed. Patient/Family are encouraged to report perceived risks to care and to ask questions if they do not understand what they are told or what they should do.
[2024-05-09 06:43] LABS: Troponin I 0.517 ng/mL (0.000-0.034)
[2024-05-09] MEDS: METOPROLOL SUCCINATE EXT REL 12.5 MG TABCR PO (08:42)
[2024-05-09] MEDS: PANTOPRAZOLE 40 MG TABLET PO ×2 (08:42→16:58)
[2024-05-09] MEDS: buPROPion HCL SR (12 HR) 150 MG TAB PO ×2 (08:43→20:33)
[2024-05-09] MEDS: ASPIRIN 81 MG ENTERIC TABLET PO (08:43)
--- NOTE | 2024-05-09 08:49 | P.HP_ITS ---
H&P: HPI History of Present Illness Date/Time: 05/09/24 08:49 Chief Complaint: Chest Pain Narrative: Patient is a 73-year-old male who presented to the emergency department with complaints of chest pain. Patient denies any significant cardiac history but does report history hypertension, paroxysmal atrial fib, and recent echocardiogram 02/2023 was showing grade 1 diastolic dysfunction, kidney stone, and GERD. patient had presented to his primary care physician earlier that day with complaints of chest pain and shortness of breath worse with exertion. He reports he typically walks 3 blocks back and forth to work however has been unable to perform his daily activities due to shortness breath and exertional chest pain. 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 patient was denying any back pain, abdominal pain, dizziness, radiation of pain up to jar down arm. in the emergency department patient was with elevated troponin and EKG showing sinus rhythm with nonspecific T-wave abnormality in inferior leads. CXR showed no cardiomegaly or acute cardiopulmonary process. patient was given full-dose Lovenox in 324 aspirin in the emergency department he was then admitted to IMU for further evaluation and treatment NSTEMI with consult cardiology. Review of Systems Review of Systems: All systems reviewed & are unremarkable except as noted in HPI and below PMFSH Past Medical History Medical History Hypertension Diastolic dysfunction (02/2023) Grade 1 Paroxysmal atrial fibrillation Nicotine dependence, cigarettes, uncomplicated Colon polyp Left ureteral stone Surgical History Surgical History Hx of cataract removal with insertion of prosthetic lens History of carpal tunnel release (2015) Family History Family History Father Cerebrovascular accident Mother Parkinsons Sibling CHF (congestive heart failure) Social History Social History Smoking packs per day: 0.5 Smoking cigarettes per day: 10.0 Years smoked: 20 Smoking pack-years: 10.00 Smoking status: Current every day smoker Second hand tobacco smoke exposure: No Alcohol intake: never Substance use: never Substance use type: does not use Do You Feel Safe in your Home?: Yes Lack of Transportation: No Lack of Food: Never True Current Housing: I Have Housing Concerned About Future Housing: No Difficulty Paying Gas/Electric Bills: No Difficulty Paying for Meds: No Currently Unemployed: No Education: Bachelor's Degree Difficulty w/ Childcare or Family Care: No Living arrangements: with family Spiritual care concerns: No Meds Home Medications and Allergies Home Medications ?Medication ?Instructions ?Recorded ?Confirmed ?Type sildenafil 100 mg tablet 100 mg PO DAILY PRN Erectile 03/08/23 05/09/24 History Dysfunction metoprolol succinate 25 mg 12.5 mg (1/2 x 25 mg) PO DAILY #15 03/10/23 05/09/24 Rx tablet,extended release 24 hr tabs multivit with minerals-iron 18 1 tablet PO DAILY 10/07/23 05/09/24 History mg-folic ac 400 mcg-vit K 25 mcg tablet (Adults Multivitamin) bupropion HCl (smoking deter) 150 150 mg PO BID #180 tabs 05/08/24 05/09/24 Rx mg tablet,12 hr sustained-release(smoking deterrent) omeprazole 40 mg capsule,delayed 40 mg PO DAILY #30 caps 05/08/24 05/09/24 Rx release ibuprofen 200 mg capsule 400 mg PO Q6H PRN fever or pain 05/09/24 05/09/24 History Allergies Allergy/AdvReac Type Severity Reaction Status Date / Time hydrocodone AdvReac Intermediate Other Verified 05/09/24 02:14 Vital Signs Vital Signs - 24 hr 05/09/24 02:15 05/09/24 02:15 05/09/24 02:16 Temperature Pulse Rate 95 93 Respiratory Rate 27 H Blood Pressure Pulse Oximetry 96 97 Oxygen Delivery Room Air 05/09/24 02:16 05/09/24 02:17 05/09/24 02:18 Temperature 97.6 F Pulse Rate 97 93 Respiratory Rate 25 H 20 Blood Pressure 162/106 H 162/106 H Pulse Oximetry 98 97 99 Oxygen Delivery Room Air 05/09/24 02:30 05/09/24 02:31 05/09/24 02:45 Temperature Pulse Rate 88 90 82 Respiratory Rate 22 H 22 H 32 H Blood Pressure 151/90 H Pulse Oximetry 98 99 98 Oxygen Delivery 05/09/24 02:46 05/09/24 02:51 05/09/24 03:00 Temperature Pulse Rate 85 82 82 Respiratory Rate 30 H 23 H 39 H Blood Pressure 150/95 H 150/95 H Pulse Oximetry 97 97 98 Oxygen Delivery 05/09/24 03:01 05/09/24 03:16 05/09/24 03:17 Temperature Pulse Rate 84 85 86 Respiratory Rate 35 H 31 H 21 H Blood Pressure 147/88 H 152/98 H Pulse Oximetry 98 99 99 Oxygen Delivery 05/09/24 03:30 05/09/24 03:31 05/09/24 03:45 Temperature Pulse Rate 79 79 85 Respiratory Rate 30 H 24 H 24 H Blood Pressure 137/80 Pulse Oximetry 98 99 100 Oxygen Delivery 05/09/24 03:46 05/09/24 04:11 05/09/24 04:13 Temperature Pulse Rate 80 86 83 Respiratory Rate 26 H 18 22 H Blood Pressure 142/88 H 154/86 H Pulse Oximetry 100 99 100 Oxygen Delivery 05/09/24 04:34 05/09/24 04:35 05/09/24 04:50 Temperature 97.9 F 97.6 F Pulse Rate 74 86 82 Respiratory Rate 16 16 Blood Pressure 122/86 151/90 H Pulse Oximetry 94 100 Oxygen Delivery 05/09/24 04:50 05/09/24 06:00 05/09/24 08:00 Temperature 98.0 F Pulse Rate 89 86 Respiratory Rate 14 Blood Pressure 145/83 H Pulse Oximetry 97 Oxygen Delivery Room Air Exam Const: General: comfortable and no acute distress HENMT: Mouth: Yes moist mucous membranes Eyes: General: appearance normal, both eyes and all related structures Pupils: Equal, round and reactive pupils present Neck: Neck: supple and no JVD Resp: Effort & Inspection: normal respiratory effort Auscultation: clear to auscultation bilaterally Cardio: Rate: regular rate Rhythm: regular rhythm GI: GI Palp: Yes Soft to palpation Auscultation: normal bowel sounds Skin: General skin exam: normal color and no rashes or lesions noted Wounds: no wounds Neuro: General: gait normal Speech: normal speech Sensory Exam: normal sensation Extrem: General: normal to inspection Psych: Mental Status: mental status grossly normal Affect: normal affect H&P: Results Labs Labs: Short CBC 05/09/24 Range/Units 02:19 WBC 10.9 H (4.5-10.0) K/mm3 Hgb 15.1 D (14.0-18.0) g/dL Hct 44.6 (42.0-52.0) % Plt Count 234 D (150-375) k/mm3 BMP 05/09/24 02:19 Sodium 143 Potassium 3.9 Chloride 108 H Carbon Dioxide 24 BUN 22 H Creatinine 1.00 Glucose 114 H Calcium 9.5 Cardiac Enzymes 05/09/24 05/09/24 Range/Units 02:19 06:03 Troponin I 0.445 H* 0.517 H* (0.000-0.034) ng/mL Liver Function 05/09/24 Range/Units 02:19 Total Bilirubin 0.5 (0.2-1.3) mg/dL AST 33 (17-59) U/L ALT 36 (6-50) U/L Alkaline Phosphatase 101 (38-126) U/L Albumin 4.8 (3.5-5.1) g/dL Assessment and Plan Assessment and plan (1) Non-STEMI (non-ST elevated myocardial infarction): Code(s): I21.4 - Non-ST elevation (NSTEMI) myocardial infarction Status: Acute Assessment and Plan: patient was admitted in the setting of exertional chest pain that has worsened over the last week was seen by primary care physician outpatient who had scheduled a stress test however chest pain worsened upon arrival to the emergency department patient had elevated troponins no ST/ T elevation. * exertional chest pain * serial troponins trending up 0.445>0.517 3rd troponin pending * EKG SR T-wave abnormality in inferior lead * cardiology consulted * NPO after midnight * catheterization if indicated * Full dose Lovenox * continuous cardiac monitoring * Lipid panel pending * Echo 02/2023: diastolic dysfunction grade 1 LVEF 50-55% * Will repeat Echo * CXR: clear lungs but probable COPD (2) Diastolic dysfunction: Onset Date: 02/2023 Code(s): I51.89 - Other ill-defined heart diseases Status: Acute Assessment and Plan: * echocardiogram showing diastolic grade 1 dysfunction LVEF 50-55 % 02/2023 * ordered F/U Echo (3) Hypertension: Code(s): I10 - Essential (primary) hypertension Status: Acute Assessment and Plan: patient was hypertensive on admission 142/88 * resume patient's metoprolol likely should be increased to at least 25 daily * Monitor BP * will make adjustment to HTN medication with cardiology recommendation (4) Paroxysmal atrial fibrillation: Code(s): I48.0 - Paroxysmal atrial fibrillation Status: Acute Assessment and Plan: patient has history of paroxysmal atrial fibrillation last echocardiogram 02/27/2023 which time showed grade 1 diastolic dysfunction LVEF of 50-55% * EKG sinus rhythm * currently on no AC * continuous cardiac monitoring (5) Heartburn: Code(s): R12 - Heartburn Status: Acute Assessment and Plan: * Added Protonix (6) Nicotine dependence, cigarettes, uncomplicated: Code(s): F17.210 - Nicotine dependence, cigarettes, uncomplicated Status: Acute Assessment and Plan: * encouraged smoking cessation * CXR showing probable COPD Plan Code status: Full code per patient DVT prophylaxis: Lovenox full dose Stress ulcer prophylaxis: Protonix 40 daily PT/OT notes: ambulatory Disposition: patient was admitted to IMU for further evaluation and treatment NSTEMI received full-dose Lovenox and ASA in the ED currently NPO will likely go for cardiac catheterization troponins continue to have upward trend. patient is ambulatory will likely discharge to home when medically stable Quality VTE Prophylaxis VTE prophylaxis: pharmacologic ordered -Patient's previous records reviewed on admission -ER notes reviewed in detail on admission -discussed all findings and current treatment plan with patient/Family/POA -Consultations reviewed for recommendations -Patient's disposition for safe discharge discussed with case supervisor Dictation performed by [employer] direct speech recognition software, therefore scraper hand variants and typographical errors may occur. Hospitalist [facility] Advance Care Plan I have confirmed that the patient's Advanced Care Plan is present, code status is documented, or surrogate decision maker is listed in patient medical record.: Yes Medication Reconciliation I have utilized all available resources to obtain, update and review the patients current medications (includes all prescriptions, OTC, herbals, cannabis, and nutritional supplements).: Yes The patient is not eligible for med reconciliation; the patient is in a emergent medical situation where delaying treatment would jeopardize the patients health.: No
--- NOTE | 2024-05-09 09:01 | ECG_ITS ---
Test Date: 2024-05-09 14:33:29 Measurements Intervals [place] Rate: 75 P: -9 [place]: 120 QRS: -1 QRSD: 88 T: -70 QT: 416 QTc: 466 Interpretive Statements SINUS RHYTHM POSSIBLE RIGHT VENTRICULAR CONDUCTION DELAY ST-T WAVE ABNORMALITY IN INF/LAT LEADS- CONSIDER ISCHEMIA BASELINE ARTIFACT- I, II, III, AVR, AVL, AVF ABNORMAL ECG Compared to ECG 05/09/2024 02:21:27 T-wave abnormality now present Possible ischemia now present Electronically Signed On 05-09-2024 14:43:09 CDT by Jatinder Valles D.O.
[2024-05-09 09:13] LABS: Troponin I 0.565 ng/mL (0.000-0.034)
[2024-05-09 09:39] LABS: Cholesterol 128 mg/dL (0-200); HDL Direct 39 mg/dL; Triglycerides 92 mg/dL (<150)
[2024-05-09 09:50] LABS: LDL Cholesterol Direct 75 mg/dL
--- NOTE | 2024-05-09 10:02 | PM.CNCAR ---
Assessment and Plan Assessment and plan (1) Non-STEMI (non-ST elevated myocardial infarction): Code(s): I21.4 - Non-ST elevation (NSTEMI) myocardial infarction Status: Acute (2) Paroxysmal atrial fibrillation: Code(s): I48.0 - Paroxysmal atrial fibrillation Status: Acute Plan 1. NSTEMI 2. Paroxysmal atrial fibrillation / atrial flutter PLAN: -Given NSTEMI, recommended LHC. Discussed indication for the procedure, procedure details, post procedure care, risks vs benefits, alternative management options. Patient agreeable to proceed. Will plan for LHC today. -Continue ASA 81mg once daily. -Continue Atorvastatin 80mg once daily. -Echocardiogram pending. Recommendations and plan discussed with Hospitalist. History of Present Illness History of Present Illness Consult date/time: 05/09/24 10:02 Requesting physician: Hawk Ordonez MD Consult reason: chest pain Reason For Visit: NSTEMI/Angina Narrative: We are consulted for NSTEMI. This is a 72 year old male who we had last seen in 2023 due to paroxysmal atrial flutter that occurred in setting of ureteral stone in February 2023. His [id number] was 1 at that time, so he was not started on anticoagulation. Was started on Metoprolol. A subsequent 30 day monitor in April 2023 showed less than 10 seconds of atrial fibrillation with RVR. He has not followed up in the office with us since then. He presented to [facility] this morning due to chest pain. Alexandre states that on Wednesday night, he woke up from sleep with acute substernal chest pain, feeling hot/sweaty. His symptoms resolved when he sat up. Chest pain lasted for a few minutes. He then had similar episode last night when sleeping. It again resolved with sitting up. He does state he had chest pain when walking to his car, but did not have any chest pain while he drove himself to the ED. He endorses shortness of breath after walking about 3 blocks that improves with rest. This has been occurring for 6 months. + Active smoker. Smokes about half a pack a day, has been smoking for 20 years. He states he had a cold about 2 weeks ago, but did not have to seek care for that. Troponins are 0.445, 0.517, 0.565. CXR with probable COPD. EKG shows sinus rhythm, nonspecific ST and T wave abnormalities. Review of Systems Review of Systems: All systems reviewed & are unremarkable except as noted in HPI and below (HPI) [facility] Past Medical History Medical History Hypertension Diastolic dysfunction (02/2023) Grade 1 Paroxysmal atrial fibrillation Nicotine dependence, cigarettes, uncomplicated Colon polyp Left ureteral stone Surgical History Surgical History Hx of cataract removal with insertion of prosthetic lens History of carpal tunnel release (2015) Family History Family History Father Cerebrovascular accident Mother Parkinsons Sibling CHF (congestive heart failure) Social History Social History Smoking packs per day: 0.5 Smoking cigarettes per day: 10.0 Years smoked: 20 Smoking pack-years: 10.00 Smoking status: Current every day smoker Second hand tobacco smoke exposure: No Alcohol intake: never Substance use: never Substance use type: does not use Do You Feel Safe in your Home?: Yes Lack of Transportation: No Lack of Food: Never True Current Housing: I Have Housing Concerned About Future Housing: No Difficulty Paying Gas/Electric Bills: No Difficulty Paying for Meds: No Currently Unemployed: No Education: Bachelor's Degree Difficulty w/ Childcare or Family Care: No Living arrangements: with family Spiritual care concerns: No Meds Home Medications and Allergies Home Medications ?Medication ?Instructions ?Recorded ?Confirmed ?Type sildenafil 100 mg tablet 100 mg PO DAILY PRN Erectile 03/08/23 05/09/24 History Dysfunction metoprolol succinate 25 mg 12.5 mg (1/2 x 25 mg) PO DAILY #15 03/10/23 05/09/24 Rx tablet,extended release 24 hr tabs multivit with minerals-iron 18 1 tablet PO DAILY 10/07/23 05/09/24 History mg-folic ac 400 mcg-vit K 25 mcg tablet (Adults Multivitamin) bupropion HCl (smoking deter) 150 150 mg PO BID #180 tabs 05/08/24 05/09/24 Rx mg tablet,12 hr sustained-release(smoking deterrent) omeprazole 40 mg capsule,delayed 40 mg PO DAILY #30 caps 05/08/24 05/09/24 Rx release ibuprofen 200 mg capsule 400 mg PO Q6H PRN fever or pain 05/09/24 05/09/24 History Allergies Allergy/AdvReac Type Severity Reaction Status Date / Time hydrocodone AdvReac Intermediate Other Verified 05/09/24 02:14 Vital Signs Vital Signs - 24 hr 05/09/24 02:15 05/09/24 02:15 05/09/24 02:16 Temperature Pulse Rate 95 93 Respiratory Rate 27 H Blood Pressure Pulse Oximetry 96 97 Oxygen Delivery Room Air 05/09/24 02:16 05/09/24 02:17 05/09/24 02:18 Temperature 36.4 C Pulse Rate 97 93 Respiratory Rate 25 H 20 Blood Pressure 162/106 H 162/106 H Pulse Oximetry 98 97 99 Oxygen Delivery Room Air 05/09/24 02:30 05/09/24 02:31 05/09/24 02:45 Temperature Pulse Rate 88 90 82 Respiratory Rate 22 H 22 H 32 H Blood Pressure 151/90 H Pulse Oximetry 98 99 98 Oxygen Delivery 05/09/24 02:46 05/09/24 02:51 05/09/24 03:00 Temperature Pulse Rate 85 82 82 Respiratory Rate 30 H 23 H 39 H Blood Pressure 150/95 H 150/95 H Pulse Oximetry 97 97 98 Oxygen Delivery 05/09/24 03:01 05/09/24 03:16 05/09/24 03:17 Temperature Pulse Rate 84 85 86 Respiratory Rate 35 H 31 H 21 H Blood Pressure 147/88 H 152/98 H Pulse Oximetry 98 99 99 Oxygen Delivery 05/09/24 03:30 05/09/24 03:31 05/09/24 03:45 Temperature Pulse Rate 79 79 85 Respiratory Rate 30 H 24 H 24 H Blood Pressure 137/80 Pulse Oximetry 98 99 100 Oxygen Delivery 05/09/24 03:46 05/09/24 04:11 05/09/24 04:13 Temperature Pulse Rate 80 86 83 Respiratory Rate 26 H 18 22 H Blood Pressure 142/88 H 154/86 H Pulse Oximetry 100 99 100 Oxygen Delivery 05/09/24 04:34 05/09/24 04:35 05/09/24 04:50 Temperature 36.6 C 36.4 C Pulse Rate 74 86 82 Respiratory Rate 16 16 Blood Pressure 122/86 151/90 H Pulse Oximetry 94 100 Oxygen Delivery 05/09/24 04:50 05/09/24 06:00 05/09/24 08:00 Temperature 36.7 C Pulse Rate 89 86 Respiratory Rate 14 Blood Pressure 145/83 H Pulse Oximetry 97 Oxygen Delivery Room Air Exam Const: General: comfortable and no acute distress HENMT: Mouth: Yes moist mucous membranes Eyes: General: appearance normal, both eyes and all related structures Resp: Effort & Inspection: normal respiratory effort Cardio: Rate: regular rate Rhythm: regular rhythm Heart sounds: Murmur heart sound present Skin: General skin exam: normal color Neuro: Speech: normal speech Psych: Mental Status: mental status grossly normal Affect: normal affect Results Labs and Meds 05/09/24 02:19 05/09/24 02:19 Lab results: Cardiac Enzymes 05/09/24 05/09/24 05/09/24 Range/Units 02:19 06:03 08:40 AST 33 (17-59) U/L Troponin I 0.445 H* 0.517 H* 0.565 H* (0.000-0.034) ng/mL Coagulation 05/09/24 Range/Units 02:19 PT 12.9 (11.1-14.7) Seconds APTT 31.6 (22.3-36.8) Seconds Lipids 05/09/24 Range/Units 05:58 Triglycerides 92 (<150) mg/dL Cholesterol 128 (0-200) mg/dL CBC 05/09/24 Range/Units 02:19 WBC 10.9 H (4.5-10.0) K/mm3 RBC 4.51 L (4.6-6.20) M/mm3 Hgb 15.1 D (14.0-18.0) g/dL Hct 44.6 (42.0-52.0) % Plt Count 234 D (150-375) k/mm3 Lymph # (Auto) 2.86 (0.9-3.2) K/mm3 [place] # (Auto) 0.8 H (0.1-0.6) K/mm3 Eos # (Auto) 0.3 (0-0.3) K/mm3 Baso # (Auto) 0.1 (0.0-0.1) K/mm3 Comprehensive Metabolic Panel 05/09/24 Range/Units 02:19 Sodium 143 (137-145) mmol/L Potassium 3.9 (3.4-5.0) mmol/L Chloride 108 H (98-107) mmol/L Carbon Dioxide 24 (22-30) mmol/L BUN 22 H (9-20) mg/dL Creatinine 1.00 (0.7-1.3) mg/dL Glucose 114 H (65-110) mg/dL Calcium 9.5 (8.4-10.2) mg/dL AST 33 (17-59) U/L ALT 36 (6-50) U/L Alkaline Phosphatase 101 (38-126) U/L Total Protein 8.0 (6.3-8.2) g/dL Albumin 4.8 (3.5-5.1) g/dL Intake and Output 05/08/24 05/09/24 05/09/24 23:59 07:59 15:59 Output Total 50 Balance -50 Output: Urine 50 Patient Weight 05/09/24 23:59 Weight 77.6 kg
--- NOTE | 2024-05-09 10:16 | P.SEDATION_ITS ---
Moderate Sedation Note-Pt Data Patient Data Diagnosis: NSTEMI Present Complaint: NSTEMI Procedure to be performed/Plan: Coronary angiography, left heart cath, +/- PCI Allergies Allergy/AdvReac Type Severity Reaction Status Date / Time hydrocodone AdvReac Intermediate Other Verified 05/09/24 02:14 Home Medications ?Medication ?Instructions ?Recorded ?Confirmed ?Type sildenafil 100 mg tablet 100 mg PO DAILY PRN Erectile 03/08/23 05/09/24 History Dysfunction metoprolol succinate 25 mg 12.5 mg (1/2 x 25 mg) PO DAILY #15 03/10/23 05/09/24 Rx tablet,extended release 24 hr tabs multivit with minerals-iron 18 1 tablet PO DAILY 10/07/23 05/09/24 History mg-folic ac 400 mcg-vit K 25 mcg tablet (Adults Multivitamin) bupropion HCl (smoking deter) 150 150 mg PO BID #180 tabs 05/08/24 05/09/24 Rx mg tablet,12 hr sustained-release(smoking deterrent) omeprazole 40 mg capsule,delayed 40 mg PO DAILY #30 caps 05/08/24 05/09/24 Rx release ibuprofen 200 mg capsule 400 mg PO Q6H PRN fever or pain 05/09/24 05/09/24 History Current Medications: Active Medications Acetaminophen (Acetaminophen 325 Mg Tablet) 650 mg PO Q4H PRN PRN Reason: Mild Pain (1-3) or Fever Aspirin (Aspirin 81 Mg Enteric Tablet) 81 mg PO QAM [facility] Last Admin: 05/09/24 08:43 Dose: 81 mg Atorvastatin Calcium (Atorvastatin 40 Mg Tablet) 80 mg PO DAILY [facility] Bupropion HCl (Bupropion Hcl Sr (12 Hr) 150 Mg Tab) 150 mg PO Q12HR [facility] Last Admin: 05/09/24 08:43 Dose: 150 mg Enoxaparin Sodium (Enoxaparin 80 Mg/0.8 Ml Syringe) 77 mg SUB-Q Q12HR [facility] Last Admin: 05/09/24 03:16 Dose: 77 mg Hydromorphone HCl (Hydromorphone Hcl Inj (*Crx) 1 Mg/Ml Syr) 0.5 mg IV PUSH Q4H PRN PRN Reason: Pain Rated 7-10 Metoprolol Succinate (Metoprolol Succinate Ext Rel 12.5 Mg Tabcr) 12.5 mg PO DAILY [facility] Last Admin: 05/09/24 08:42 Dose: 12.5 mg Ondansetron HCl (Ondansetron Inj 4 Mg/2 Ml Vial) 4 mg IV PUSH Q4H PRN PRN Reason: Nausea Pantoprazole Sodium (Pantoprazole 40 Mg Tablet) 40 mg PO BID [facility] Last Admin: 05/09/24 08:42 Dose: 40 mg Perflutren Lipid Microsphere (Perflutren Lipid Microspheres 1.5 Ml Vial Diluted To 10 Ml Total Volume) 0 ml IV PUSH ONCE PRN; Protocol PRN Reason: adequate visualization Stop: 05/12/24 03:52 Perflutren Lipid Microsphere (Perflutren Lipid Microspheres 1.5 Ml Vial Diluted To 10 Ml Total Volume) 0 ml IV PUSH ONCE PRN; Protocol PRN Reason: adequate visualization Stop: 05/12/24 09:03 Sedation/Anesthesia: No previous sedation/anesthesia problems (including family history). [facility] Past Medical History Medical History Hypertension Diastolic dysfunction (02/2023) Grade 1 Paroxysmal atrial fibrillation Nicotine dependence, cigarettes, uncomplicated Colon polyp Left ureteral stone Surgical History Surgical History Hx of cataract removal with insertion of prosthetic lens History of carpal tunnel release (2015) Family History Family History Father Cerebrovascular accident Mother Parkinsons Sibling CHF (congestive heart failure) Social History Social History Smoking packs per day: 0.5 Smoking cigarettes per day: 10.0 Years smoked: 20 Smoking pack-years: 10.00 Smoking status: Current every day smoker Second hand tobacco smoke exposure: No Alcohol intake: never Substance use: never Substance use type: does not use Do You Feel Safe in your Home?: Yes Lack of Transportation: No Lack of Food: Never True Current Housing: I Have Housing Concerned About Future Housing: No Difficulty Paying Gas/Electric Bills: No Difficulty Paying for Meds: No Currently Unemployed: No Education: Bachelor's Degree Difficulty w/ Childcare or Family Care: No Living arrangements: with family Spiritual care concerns: No Mod Sed Physical Exam Physical Exam Pre Procedural Exam: Normal: Appearance, Lungs, Heart Rate, Heart Rhythm, Neuro Exam, Extremities and Skin Hours since solid foods: 12 Hours since liquid intake: 8 Mallampati Classification: class III Internal Medicine - PN: Obj Da Vital Signs Vital Signs: Vital Signs - 24 hr 05/09/24 02:15 05/09/24 02:15 05/09/24 02:16 Temperature Pulse Rate 95 93 Respiratory Rate 27 H Blood Pressure Pulse Oximetry 96 97 Oxygen Delivery Room Air 05/09/24 02:16 05/09/24 02:17 05/09/24 02:18 Temperature 36.4 C Pulse Rate 97 93 Respiratory Rate 25 H 20 Blood Pressure 162/106 H 162/106 H Pulse Oximetry 98 97 99 Oxygen Delivery Room Air 05/09/24 02:30 05/09/24 02:31 05/09/24 02:45 Temperature Pulse Rate 88 90 82 Respiratory Rate 22 H 22 H 32 H Blood Pressure 151/90 H Pulse Oximetry 98 99 98 Oxygen Delivery 05/09/24 02:46 05/09/24 02:51 05/09/24 03:00 Temperature Pulse Rate 85 82 82 Respiratory Rate 30 H 23 H 39 H Blood Pressure 150/95 H 150/95 H Pulse Oximetry 97 97 98 Oxygen Delivery 05/09/24 03:01 05/09/24 03:16 05/09/24 03:17 Temperature Pulse Rate 84 85 86 Respiratory Rate 35 H 31 H 21 H Blood Pressure 147/88 H 152/98 H Pulse Oximetry 98 99 99 Oxygen Delivery 05/09/24 03:30 05/09/24 03:31 05/09/24 03:45 Temperature Pulse Rate 79 79 85 Respiratory Rate 30 H 24 H 24 H Blood Pressure 137/80 Pulse Oximetry 98 99 100 Oxygen Delivery 05/09/24 03:46 05/09/24 04:11 05/09/24 04:13 Temperature Pulse Rate 80 86 83 Respiratory Rate 26 H 18 22 H Blood Pressure 142/88 H 154/86 H Pulse Oximetry 100 99 100 Oxygen Delivery 05/09/24 04:34 05/09/24 04:35 05/09/24 04:50 Temperature 36.6 C 36.4 C Pulse Rate 74 86 82 Respiratory Rate 16 16 Blood Pressure 122/86 151/90 H Pulse Oximetry 94 100 Oxygen Delivery 05/09/24 04:50 05/09/24 06:00 05/09/24 08:00 Temperature 36.7 C Pulse Rate 89 86 Respiratory Rate 14 Blood Pressure 145/83 H Pulse Oximetry 97 Oxygen Delivery Room Air Intake/Output Intake/Output: Intake & Output 05/06/24 05/07/24 05/08/24 05/09/24 23:59 23:59 23:59 23:59 Output Total 50 Balance -50 Meds/Results Medications: Active Medications Generic Name Dose Route Start Last Admin Trade Name Freq PRN Reason Stop Dose Admin Acetaminophen 650 mg 05/09/24 03:51 Acetaminophen 325 Mg Tablet PO Q4H PRN Mild Pain (1-3) or Fever Aspirin 81 mg 05/09/24 09:00 05/09/24 08:43 Aspirin 81 Mg Enteric Tablet PO 81 mg QAM AYLEEN Administration Atorvastatin Calcium 80 mg 05/09/24 10:05 Atorvastatin 40 Mg Tablet PO DAILY AYLEEN Bupropion HCl 150 mg 05/09/24 09:00 05/09/24 08:43 Bupropion Hcl Sr (12 Hr) 150 Mg Tab PO 150 mg Q12HR AYLEEN Administration Enoxaparin Sodium 77 mg 05/09/24 03:10 05/09/24 03:16 Enoxaparin 80 Mg/0.8 Ml Syringe SUB-Q 77 mg Q12HR AYLEEN Administration Hydromorphone HCl 0.5 mg 05/09/24 03:51 Hydromorphone Hcl Inj (*Crx) 1 Mg/Ml Syr IV PUSH Q4H PRN Pain Rated 7-10 Metoprolol Succinate 12.5 mg 05/09/24 09:00 05/09/24 08:42 Metoprolol Succinate Ext Rel 12.5 Mg Tabcr PO 12.5 mg DAILY AYLEEN Administration Ondansetron HCl 4 mg 05/09/24 03:51 Ondansetron Inj 4 Mg/2 Ml Vial IV PUSH Q4H PRN Nausea Pantoprazole Sodium 40 mg 05/09/24 09:00 05/09/24 08:42 Pantoprazole 40 Mg Tablet PO 40 mg BID AYLEEN Administration Perflutren Lipid Microsphere 0 ml 05/09/24 03:51 Perflutren Lipid Microspheres 1.5 Ml Vial Diluted To 10 Ml Total Volume IV PUSH 05/12/24 03:52 ONCE PRN adequate visualization Protocol Perflutren Lipid Microsphere 0 ml 05/09/24 09:03 Perflutren Lipid Microspheres 1.5 Ml Vial Diluted To 10 Ml Total Volume IV PUSH 05/12/24 09:03 ONCE PRN adequate visualization Protocol Radiology Results: ITS Impressions Chest X-Ray 05/09/24 06:18 Impression: Clear lungs. Probable COPD. Labs 05/09/24 02:19 05/09/24 02:19 Labs: Laboratory Results - last 24 hr 05/09/24 05/09/24 05/09/24 02:19 05:58 06:03 WBC 10.9 H RBC 4.51 L Hgb 15.1 D Hct 44.6 MCV 98.9 MCH 33.5 MCHC 33.9 RDW 12.8 Plt Count 234 D MPV 9.4 Immature Gran % (Auto) 0.4 Neut % (Auto) 62.9 Lymph % (Auto) 26.3 Green % (Auto) 7.0 Eos % (Auto) 2.8 Baso % (Auto) 0.6 Lymph # (Auto) 2.86 Green # (Auto) 0.8 H Eos # (Auto) 0.3 Baso # (Auto) 0.1 Abs Immat Gran (auto) 0.04 H Absolute Neuts (auto) 6.9 H Absolute Nucleated RBC 0.000 Nucleated RBC % 0.0 PT 12.9 INR 0.9 APTT 31.6 Sodium 143 Potassium 3.9 Chloride 108 H Carbon Dioxide 24 Anion Gap 11 BUN 22 H Creatinine 1.00 Estim Creat Clear Calc 62 Estimated GFR > 60 Glucose 114 H Calcium 9.5 Magnesium Total Bilirubin 0.5 AST 33 ALT 36 Alkaline Phosphatase 101 Troponin I 0.445 H* 0.517 H* Total Protein 8.0 Albumin 4.8 Triglycerides 92 Cholesterol 128 LDL Cholesterol Direct 75 HDL Direct 39 Lipase 167 05/09/24 08:40 WBC RBC Hgb Hct MCV MCH MCHC RDW Plt Count MPV Immature Gran % (Auto) Neut % (Auto) Lymph % (Auto) Green % (Auto) Eos % (Auto) Baso % (Auto) Lymph # (Auto) Green # (Auto) Eos # (Auto) Baso # (Auto) Abs Immat Gran (auto) Absolute Neuts (auto) Absolute Nucleated RBC Nucleated RBC % PT INR APTT Sodium Potassium Chloride Carbon Dioxide Anion Gap BUN Creatinine Estim Creat Clear Calc Estimated GFR Glucose Calcium Magnesium 2.0 Total Bilirubin AST ALT Alkaline Phosphatase Troponin I 0.565 H* Total Protein Albumin Triglycerides Cholesterol LDL Cholesterol Direct HDL Direct Lipase ASA Classification/Sedation ASA Classification/Sedation ASA Class: III Emergent: No Risks: Risks, benefits and alternatives explained and patient/family accepted plan for sedation. Patient re-evaluated immediately prior to sedation.
--- NOTE | 2024-05-09 12:02 | WPDCARDPROC ---
Cardiac Cath Procedure Note Date of procedure:: 05/09/24 Performing physician:: CATHETERIZATION LABORATORY REPORT Procedure Date: 05/09/2024 Commercial Hvac Technician: Guerrero Gonzales M.D., [facility]? Referring Physician: Guerrero Gonzales M.D. ? Anesthesia: Versed and Fentanyl were ordered and given in my presence at 10:45, procedure ended at 11:06. Supervision of nurse monitored moderate sedation with Versed and Fentanyl was provided for 21 minutes. Total of Versed 1mg and Fentanyl 50mcg were administered by the Laborer Demolition RN Mingo Naidu. Pre-op Diagnosis: NSTEMI Post-op Diagnosis: 1. Multivessel coronary artery disease 2. Elevated left ventricular end-diastolic pressure of 24mmHg. Procedure(s): 1. Moderate sedation 2. Ultrasound-guided access of the right radial artery 3. Coronary angiography 4. Left heart cath Access Site: Right radial artery Brief History and Clinical Indications: Patient is a 73 year old male who is referred for [facility] for NSTEMI. All risks, benefits and alternatives to left heart catheterization with or without percutaneous coronary intervention was discussed at length with the patient. Risk of complications including but not limited to bleeding, infection, arrhythmia, stroke, worsening kidney function, blood loss, groin hematoma, limb loss, emergency coronary artery bypass grafting, and even were discussed with the patient and all questions were answered. The patient understood and wished to proceed. Time out called, patient name, date of , medical record number, allergies, procedure performed, identify Commercial Hvac Technician, patient and staff member concurred with accurate data, procedure carried on. Findings: LEFT HEART CATHETERIZATION FINDINGS: 1. Left main: The left main coronary artery is widely patent without any significant obstructive disease. 2. Left anterior descending: Heavy calcifications are seen throughout the proximal and mid LAD. The mid LAD has an 80% stenosis. The apical LAD has two tandem lesions of 80% and 90%. The diagonal vessel is a small caliber branch with a 70% stenosis in the mid portion at the bifurcation; the upper branch has 99% ostial disease. 3. Left circumflex: The left circumflex artery is the dominant vessel. The LCX has luminal irregularities. The OM vessel is a large caliber vessel. Proximal to the bifurcation of two OM branches, there is a focal 90% stenosis. The larger branch has luminal irregularities. The other branch has a long 70-80% disease in the proximal and mid portions. 4. Right coronary artery: The RCA is a non-dominant vessel. The proximal portion has a moderate stenosis. The mid portion has a long 90% stenosis. 5. Left ventricle: A. End-diastolic pressure 24 mmHg. B. LV gram deferred. C. No significant gradient across aortic valve on catheter pullback. Description of Procedure: Informed consent signed and placed in the chart. Patient transferred to electronic lab technician room. Prepped and draped in usual sterile fashion. 2% lidocaine injected subcutaneously in right wrist area. 22-gauge venipuncture catheter used to access the right radial artery under ultrasound guidance. 6-FR slender sheath placed in right radial artery. Nitroglycerine and Verapamil were given intraarterial through the sheath. Versacore wire advanced under fluoroscopy 5F Tig 4 diagnostic catheter engaged Right Coronary Artery 5F FL 4 diagnostic catheter engaged Left Main Coronary Artery. Multiple orthogonal angiogram obtained and reviewed 5F Pigtail diagnostic catheter crossed aortic valve to obtain LVEDP, LV angiogram deferred. Hemostasis was achieved by application of TR band. Disposition: Floor Plan: The patient will be monitored in the recovery area. Will arrange transfer for CT Surgery evaluation for surgical revascularization. Continue aggressive medical therapy and risk factor modification. ? Guerrero Gonzales M.D. Interventional Cardiology
[2024-05-09 13:52] LABS: Hemoglobin A1C 5.5 % (<5.7)
[2024-05-09] MEDS: ATORVASTATIN 40 MG TABLET 80 MG PO (14:56)
[2024-05-09] MEDS: HEPARIN SOD/D5W 100 UNITS/ML 25,000 UNITS/250 ML BAG 9 UNITS IV CONT (20:34)
== END 2024-05-09 22:17 | disposition short-term general hospital (02) | DRG 282 ==
LOC: ANHED 03:50 → ANHIMU 05:29
PROVIDERS: Internal Medicine; Nurse Practitioner Family; Admitting Provider Internal Medicine; Emergency Provider Student in an Organized Health Care Education/Training Program; PCP Family Medicine Adolescent Medicine; Visit Provider Internal Medicine
PROC: 4A023N7 Measurement of Cardiac Sampling and Pressure, Left Heart, Percutaneous Approach (ICD-10-PCS; CPT 93452; principal; 2024-05-09 10:00)
DX: I21.4 Non-ST elevation (NSTEMI) myocardial infarction (principal); I25.10 Atherosclerotic heart disease of native coronary artery without angina pectoris; I48.0 Paroxysmal atrial fibrillation; I10 Essential (primary) hypertension; K21.9 Gastro-esophageal reflux disease without esophagitis; F17.210 Nicotine dependence, cigarettes, uncomplicated; R12 Heartburn
CPT/HCPCS: 36415; 71045; 80053; 80061; 83036; 83690; 83735; 84484; 85025; 85610; 85730; 93005; 93306; 93458; 96374; 96375; 99285; A9270; C1769; C1887; C1894; J1644; J1650; J2003; J2250; J2305; J3010; J7040

== ENCOUNTER 2024-10-23 12:30 | Outpatient (RCR) | payer BC, SELFPAY ==
[2024-08-01 15:15] VITALS: PULSE 91
== END 2024-10-26 12:41 | disposition home or self-care (01) ==
LOC: ANHCPREHAB 12:30
PROVIDERS: PCP Family Medicine Adolescent Medicine; Visit Provider Internal Medicine Cardiovascular Disease
DX: Z95.1 Presence of aortocoronary bypass graft (principal)
CPT/HCPCS: 93798

== ENCOUNTER 2024-12-14 15:35 | Emergency (ER) | payer BC, SELFPAY ==
[2024-12-14 15:50] VITALS: BP 128/61; PULSE 84; RESP 18; TEMP 36.6; O2SAT 100
--- NOTE | 2024-12-14 16:07 | ED.URI ---
HPI - URI/Sore Throat General Chief Complaint: Upper Respiratory Infection Stated Complaint: runny nose/headache/cough Time Seen by Provider: 12/14/24 16:07 Source: patient and RN notes reviewed Mode of arrival: ambulatory Limitations: no limitations History of Present Illness HPI Narrative: 74-year-old male patient presents Express Care complaining of upper respiratory symptoms for 3 weeks. Patient has complain of sinus pressure, headaches, body aches, cough, runny nose, mucopurulent nasal drainage. Patient denies any other upper respiratory symptoms, chills, fevers, nausea vomiting, diarrhea, chest pain, difficulty breathing, wheezing, shortness of breath, or any other symptoms. Patient reports a cardiac history, status post bypass earlier this year in May 2024. Patient took some Tylenol and NyQuil with some relief. Related Data Home Medications ?Medication ?Instructions ?Recorded ?Confirmed ?Last Taken ?Type clopidogrel 75 mg tablet mg PO DAILY 05/30/24 10/02/24 Unknown History atorvastatin 40 mg tablet 40 mg PO DAILY 07/18/24 10/02/24 Unknown History diltiazem HCl 120 mg capsule,24 120 mg PO DAILY 10/02/24 10/02/24 Unknown History hr,extended release (Tiazac) metoprolol succinate 25 mg 25 mg PO DAILY 10/02/24 10/02/24 Unknown History tablet,extended release 24 hr Allergies Allergy/AdvReac Type Severity Reaction Status Date / Time hydrocodone AdvReac Intermediate Other Verified 12/14/24 15:59 Review of Systems Review of Systems: CONSTITUTIONAL: Denies fever, chills, or sweats. Positive for body aches. EYES: Denies visual changes, redness, or discharge. ENT: Positive for rhinorrhea, congestion, sinus pressure,. Negative for sore throat, or otalgia. CARDIOVASCULAR: Denies chest pain, palpitations, or edema. RESPIRATORY: Positive for cough. Negative for dyspnea or wheezing. GASTROINTESTINAL: Denies abdominal pain, nausea, vomiting, or diarrhea. GENITOURINARY: Denies dysuria or hematuria. SKIN: Denies rash or itching. MUSCULOSKELETAL: Denies back pain, joint pain, or myalgia. NEUROLOGIC: Denies headache, numbness, or weakness. PSYCHIATRIC: Denies anxiety or depression. All other systems reviewed are negative, except as documented in HPI. 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/12/24 Dr Yaakov Patten [place] Hx of cataract removal with insertion of prosthetic lens History of carpal tunnel release (2015) Family History Family History Father Cerebrovascular accident Mother Parkinsons Sibling CHF (congestive heart failure) Social History Social History Smoking packs per day: 0.5 Smoking cigarettes per day: 10.0 Years smoked: 20 Smoking pack-years: 10.00 Tobacco type: cigarettes Second hand tobacco smoke exposure: No Additional smoking assessment comments: there are some days that patient doesn't smoke any Alcohol intake: never Substance use: never Substance use type: does not use Do You Feel Safe in your Home?: Yes Lack of Transportation: No Lack of Food: Never True Current Housing: I Have Housing Concerned About Future Housing: No Difficulty Paying Gas/Electric Bills: No Difficulty Paying for Meds: No Currently Unemployed: No Education: Bachelor's Degree Difficulty w/ Childcare or Family Care: No Living arrangements: with family Spiritual care concerns: No Comments At the time of my signature, I reviewed and agree with the nursing past medical, surgical, social, and family history. There is no relevant family history pertinent to the patient complaint. Exam Narrative: GENERAL: This is a well-nourished, well-developed adult, in no apparent distress. They are non ill-appearing, nontoxic appearing. HEAD: normocephalic, atraumatic. EYES: Sclera clear/white. Vision is grossly intact. Conjunctiva normal bilaterally. Extraocular movements intact. EARS: External ears normal, auditory canals clear and without drainage, TMs without erythema or perforation. Hearing grossly intact. NOSE: External nose normal with no obvious nasal discharge, nasal turbinates erythematous with exudate, no rhinorrhea. Frontal maxillary sinus tenderness to palpation. THROAT: Mucous membranes moist, posterior pharynx erythematous without exudate. Uvula is midline. Postnasal drip present. NECK: Neck supple, non-tender without lymphadenopathy, masses or thyromegaly. CARDIOVASCULAR: Regular rate and rhythm without murmurs, gallops, or rubs. RESPIRATORY: Clear to auscultation. Breath sounds equal bilaterally. No wheezes, rales, or rhonchi. SKIN: warm, Dry, intact with no suspicious lesions or rash, good texture and turgor. NEURO: awake, alert, and oriented to person, place and time. There were no obvious focal neurologic abnormalities. EXTREMITIES: No joint tenderness, effusion, or edema noted. BACK: Nontender without deformity. Course Course Emergency Course: Portions of this record may have been created with voice recognition software Level of Care: Express Care Visit Vital Signs Vital signs: Vital Signs Temperature 97.9 F 12/14/24 15:50 Pulse Rate 84 12/14/24 15:50 Respiratory Rate 18 12/14/24 15:50 Blood Pressure 128/61 12/14/24 15:50 Pulse Oximetry 100 12/14/24 15:50 Oxygen Delivery Room Air 12/14/24 15:50 Temperature 97.9 F 12/14/24 15:50 Pulse Rate 84 12/14/24 15:50 Respiratory Rate 18 12/14/24 15:50 Blood Pressure 128/61 12/14/24 15:50 Pulse Oximetry 100 12/14/24 15:50 Oxygen Delivery Room Air 12/14/24 15:50 MDM - URI/Sore Throat MDM Narrative Medical decision making narrative: Given patient's length of symptoms likely has a bacterial sinusitis. Will treat with Augmentin. Discussed physical exam findings. Advised supportive measures and signs/symptoms to go to the ER. Pt is appropriate for outpt treatment and f/u. Differential Diagnosis Differential diagnosis: Likely upper respiratory infection, otitis media, sinusitis, viral infection and pharyngitis Discharge Plan Discharge Clinical Impression: Sinusitis Qualifiers: Sinusitis location: unspecified location Chronicity: acute Recurrence: non-recurrent Qualified Code(s): J01.90 - Acute sinusitis, unspecified Patient Disposition: Home Condition: Stable Instructions: Antibiotic Form, Sinusitis (ED) Additional Instructions: Take the antibiotics as directed and complete the course even if you start to feel better. You may use a Neti pot saline rinse 3 times a day with lukewarm distilled water You may take up to 1000 mg Tylenol every 6-8 hours. Do not exceed 1000 mg per dose, do exceed more than 4000 mg of Tylenol in a day. Use a humidifier or vaporizer at night. Drink plenty of water. 8-10 glasses per day. Use flonase 2 times per day for 5 days then as needed Take mucinex 2 times per day and be sure to take with 8oz of water. Follow up with Primary provider in 3-5 days Please go to the ER if he develops any difficulty breathing, worsening symptoms, chest pains, fevers, or any other concerns Patient Language: Angolan Prescriptions: New amoxicillin-pot clavulanate 875-125 mg tablet 1 tablet PO Q12H 7 Days Qty: 14 0RF No Action clopidogrel 75 mg tablet PO DAILY atorvastatin 40 mg tablet 40 mg PO DAILY diltiazem HCl [Tiazac] 120 mg capsule,extended release 24 hr 120 mg PO DAILY metoprolol succinate 25 mg tablet extended release 24 hr 25 mg PO DAILY nicotine 21-14-7 mg/24 hr patch, TD daily, sequential See Rx Instructions transdermal .COMPLEX Qty: 56 0RF Rx Instructions: apply 1-21 mg NICOTINE PATCH daily for 28 days; follow with 1-14 mg PATCH daily for 14 days, then 1-7mg PATCH daily for 14 days transdermal sildenafil 100 mg tablet 100 mg PO DAILY PRN (Reason: sexual activity) Qty: 18 0RF Rx Instructions: administer 30 minutes to 4 hours before activity Follow-up/Referrals: Denny Ni DO [Primary [facility] Provider[facility]] Time of Disposition: 16:17
== END 2024-12-14 16:22 | disposition home or self-care (01) ==
PROVIDERS: PCP Family Medicine
DX: J01.90 Acute sinusitis, unspecified (principal); F17.210 Nicotine dependence, cigarettes, uncomplicated; I10 Essential (primary) hypertension; I48.0 Paroxysmal atrial fibrillation; I25.2 Old myocardial infarction; Z95.1 Presence of aortocoronary bypass graft
CPT/HCPCS: 99213; G0463